=== PATIENT | male | born 1985 | race Caucasian/White ===

== ENCOUNTER 2019-01-24 11:58 | Inpatient (IN) ==
--- NOTE | 2019-01-24 12:38 | Anesthesia Evaluation PreOp ---
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: Other (anxiety, ADHD, bipolar, auditory and visual hallucinations, prior suicide attempt, previous psychiatric hospitalization) Other Medical History: Denies Any Significant HX, Hepatic (hepatitis) Anesthesia History: No Prior Anesthetic Complications Alcohol Use: none Drug use: IV Drug Use (Hx IV drug use) Medications and Allergies No Known Home Drugs 01/24/19 [History] Allergy/AdvReac Type Severity Reaction Status Date / Time aspirin Allergy Difficulty Verified 10/10/18 15:29 Breathing - Meds/Allergy Pre-op Review Medications Reviewed: Yes Allergies Reviewed: Yes Beta Blockers on Current Med List: No Anesthesia Exam O2 Sat Height 1.75 m Height 1.75 m Weight 74.48 kg Weight 74.48 kg O2 Sat by Pulse Oximetry 98 O2 Sat by Pulse Oximetry 98 Vital Signs Temp Pulse Resp BP Pulse Ox 98.5 F 86 18 131/95 98 01/24/19 12:35 01/24/19 12:35 01/24/19 12:35 01/24/19 12:35 01/24/19 12:35 NPO (# of Hours): > 8 hrs Pain Scale: 0 Pain Scale Used: Numeric (1 - 10) - HEENT Pupil (Motor): Pupils equal, EOMI Mallampati: II Teeth: Normal Oral Opening: Greater than 3 - 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
[2019-01-24] MEDS ORDERED: Albuterol 2.5 MG/3 ML NEBULIZER IH ONE ×2 (12:53→13:10)
[2019-01-24] MEDS ORDERED: CeFAZolin Syr 2,000MG/20 ML 2,000 MG/20 ML SYRINGE IVPB ONE (12:53)
[2019-01-24] MEDS ORDERED: Ringers Solution, Lactated 1,000 ML IVC SCH (13:00)
[2019-01-24] MEDS ORDERED: Lidocaine -MPF 2% 2 ML VIAL ONE (13:08)
[2019-01-24] MEDS ORDERED: *HR* FentaNYL (PF) 100 MCG/2 ML VIAL ONE (13:08)
[2019-01-24] MEDS ORDERED: *HR* Midazolam HCl 2 MG/2 ML VIAL ONE (13:08)
[2019-01-24] MEDS ORDERED: Ondansetron 4 MG/2 ML VIAL ONE (13:08)
[2019-01-24] MEDS ORDERED: Dexamethasone 4 MG/ML VIAL ONE (13:08)
[2019-01-24] MEDS ORDERED: *HR* Propofol 200 MG/20 ML VIAL IVP ONE (13:08)
[2019-01-24] MEDS ORDERED: *HR* Labetalol 20 MG/4 ML SYRINGE IVP PRN (13:10)
[2019-01-24] MEDS ORDERED: *HR* Promethazine 25 MG/ML VIAL IVP PRN (13:10)
[2019-01-24] MEDS ORDERED: *HR* OxyCODONE Immed Rel 5 MG TABLET PO PRN ×2 (13:10→16:34)
[2019-01-24] MEDS ORDERED: *HR* HYDROmorphone (PF) 1 MG/ML SYRINGE IVP PRN (13:10)
[2019-01-24] MEDS ORDERED: Ondansetron 4 MG/2 ML VIAL IVP ONE (13:10)
--- NOTE | 2019-01-24 14:04 | History & Physical Report ---
Date of Encounter: 01/24/19 Time of Encounter: 14:01 24 Hour HP Update - Instructions Instructions: If the History and Physical is less than 30 days old and was completed prior to A.M. admission and or procedure and has NOT been updated on calendar day of procedure please complete this update prior to performing procedure. - Update Patient reports changes in Medical Condition: No Changes in examination, assessment, or condition: No Changes in Medication: No Preop tests/diagnostics Reviewed: Yes Surgery Remains Indicated: Yes Consent for Planned Operative Procedure(s) Verified: Yes - Attending Attestation I did have a long discussion with the patient regarding the clinical scenario. He does admit to a history of IV drug use to he says he has not used in years, however on exam he does have fresh-appearing track harper on both forearms and antecubital fossa regions. Given my concern and risk to the patient of going home with the PICC in terms of overdose which could be deadly, my recommendation is direct admission to the hospitalist to facilitate placement. The patient is agreeable. I did communicate this plan with the hospitalist will take the patient on as a primary patient and I will see him in consultation.
[2019-01-24] MEDS ORDERED: Bupivacaine/EPI 1:200k 0.5%PF 10 ML VIAL ONE (14:06)
[2019-01-24] MEDS ORDERED: Vancomycin 1,000 MG VIAL ONE (14:44)
[2019-01-24] MEDS ORDERED: Ondansetron 4 MG/2 ML VIAL IVP PRN (16:34)
[2019-01-24] MEDS ORDERED: Acetaminophen 325 MG TABLET PO PRN (16:34)
[2019-01-24] MEDS ORDERED: Naloxone 0.4 MG/ML INJ IVP PRN (16:34)
[2019-01-24] MEDS ORDERED: Ipratropium/Albuterol Neb 3 ML IH PRN (16:39)
--- NOTE | 2019-01-24 16:47 | Orthopedic Operative Note ---
Date of procedure: 01/24/19 Procedure: OPERATIVE REPORT SURGEON: Camacho Roman MD PREOPERATIVE DIAGNOSIS: Right long finger infection with osteomyelitis and septic arthritis of the distal interphalangeal joint POSTOPERATIVE DIAGNOSIS: Same PROCEDURE: Incision, drainage, irrigation, debridement of the right long finger including debridement of the middle and distal phalanges and distal interphalangeal joint ANESTHESIA: Gen. anesthesia SPECIMENS: By biopsies taken for culture and specimen as well as swabs for culture PREOPERATIVE NOTE The surgical plan was reviewed with the patient. The risks, benefits, alternatives, and potential complications of this procedure were discussed with the patient including injury to veins, arteries, nerves, tendons, ligaments, and bone. Also discussed were the risks of infection, bleeding, pain, blood clots, the possible need for a blood transfusion, the possible need for further procedures, heart attack, stroke, and . Additional risks include persistent infection despite surgery and the need for amputation. All of this was explained in simple terms, and the patient verbalized understanding and wished to proceed. Consent was given to proceed with surgery. PROCEDURE: The patient was seen in the preoperative holding area where the identify and the consent were confirmed. The right long finger was marked. Final questions were answered. The patient was brought back to the operating room and placed supine on the operating room table. A huddle was performed with the patient and all vital surgical team members confirming patient identity, the correct procedure, and the correct operative site. Gen. anesthesia was administered. The operative extremity was prepped and draped in the usual sterile fashion. A surgical time out was performed immediately preceding the incision with all personnel in the operating room to confirm patient identity, the correct operative site and extremity, correct radiographic studies, availability of appropriate surgical equipment, and agreement on the planned procedure. The tourniquet was inflated without exsanguination. An H-shaped incision was made dorsally over the distal interphalangeal joint and full-thickness flaps were elevated. The extensor mechanism was identified and was noted to be attenuated. This was elevated. The distal interphalangeal joint was opened along its radial margin. The bone of the distal phalanx and the middle phalanx was very soft and easily debrided with a rongeur and curette. This bone was sent for both culture and specimen. The distal interphalangeal joint was swabbed for culture. There is no grossly purulent material during any portion of the dissection. The wound was copiously irrigated with 3 L of saline. The wound was very loosely closed with interrupted nylon stitches to allow for drainage. A soft, sterile dressing was applied followed by an AlumaFoam splint. The instrument, sponge, and needle counts were correct after wound closure. POST OPERATIVE PLAN: Due to the patient's prior history of IV drug use will at this point manage the patient on an inpatient basis so that we can discuss disposition with addiction social worker and the hospitalist. Was there an assistant boys track coach present: No Estimated blood loss (cc): 1
[2019-01-24 16:48] LABS: Basophils % 0.3 %; Eosinophils # 0.2 K/mcL (0.0-0.6); Eosinophils % 2.9 %; Hematocrit 40.3 % (37.5-50.1); Hemoglobin 13.5 g/dL (12.9-16.9); Immature Granulocytes % 0.4 % (0-4); Lymphocytes # 1.8 K/mcL (0.6-4.6); Lymphocytes % 25.8 %; Mean Corpuscular HGB Conc 33.5 g/dL (31.6-35.5); Mean Corpuscular Hemoglobin 30.7 pg (28.0-33.3); Mean Corpuscular Volume 91.6 fL (83.0-100.0); Mean Platelet Volume 9.5 fL (9.4-12.4); Monocytes # 0.3 K/mcL (0.0-1.3); Neutrophils # 4.7 K/mcL (1.6-8.9); Platelet Count 195 K/mcL (140-400); Red Cell Distribution Width 13.2 % (11.5-14.5); Segmented Neutrophils % 66.6 %
--- NOTE | 2019-01-24 16:50 | Orthopedics Progress Note ---
Date of Encounter: 01/24/19 Time of Encounter: 16:47 Subjective Interval history: S: The patient is seen on the floor and is comfortable. The digital block is still in effect. O: Afebrile, VSS Postoperative dressings in place. The fingertip is pink with excellent capillary refill A: Post I&D of the right long finger including the DIP joint and middle and distal phalanges. P: At this point the patient is admitted to the hospitalist. Continue vancomycin over the weekend until cultures delineate Daily dressing changes Elevation of the right upper extremity Objective Vital signs: Vital Signs Temp Pulse Resp BP Pulse Ox 01/24/19 16:45 98.3 F 73 16 118/75 100 01/24/19 16:06 97.5 F L 66 18 122/79 100 01/24/19 15:21 62 18 96/59 100 01/24/19 15:11 61 18 91/59 99 01/24/19 15:01 98.0 F 64 20 93/52 98 01/24/19 12:35 98.5 F 86 18 131/95 98 Intake and Output 01/24/19 01/24/19 01/24/19 07:59 15:59 23:59 Output Total 2 / 2 Balance -2 / -2 Output: Estimated Blood Loss 2 / 2 Other: Weight 74.48 kg Patient Weight 01/24/19 23:59 Weight 74.48 kg Consult Discharge Plan - Plan Referrals: NONE,PCP [Primary Care Provider] -
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
[2019-01-24 17:11] LABS: Alanine Aminotransferase 165 Units/L (7-52); Albumin 4.2 g/dL (3.5-5.7); Albumin/Globulin Ratio 1.6 (1.1-2.2); Alkaline Phosphatase 67 Units/L (34-104); Aspartate Amino Transferase 111 Units/L (13-39); Bilirubin,Total 0.6 mg/dL (0.3-1.0); Blood Urea Nitrogen 13 mg/dL (6-20); Calcium 9.2 mg/dL (8.6-10.3); Carbon Dioxide 28 mEq/L (23-29); Chloride 104 mEq/L (98-107); Globulin 2.6 g/dL (2.4-3.5); Glucose 97 mg/dL (70-105); Osmolality,Calculated 288 (280-300); Sodium 139 mEq/L (136-145); Total Protein 6.8 g/dL (6.4-8.9)
[2019-01-24 17:12] LABS: Magnesium 1.8 mg/dL (1.6-2.6); Phosphorous 3.7 mg/dL (2.7-4.5)
[2019-01-24] MEDS: *HR* Heparin 5,000 UNIT/ML VIAL SQ SCH (17:33)
[2019-01-24 18:29] LABS: BUN/Creatinine Ratio 19 (6-26); eGFR For Non-African Americans > 60 (> 60)
[2019-01-24 19:57] LABS: Amphetamine Screen,Urine Negative ng/mL (Cutoff=1000); Barbiturate Screen,Urine Negative ng/mL (Cutoff=200); Benzodiazepines Screen,Urine Positive ng/mL (Cutoff=200); Cannabinoid Screen,Urine Positive ng/mL (Cutoff = 50); Cocaine Screen,Urine Positive ng/mL (Cutoff= 300); Opiate Screen,Urine Negative ng/mL (Cutoff=300); Phencyclidine Screen,Urine Negative ng/mL (Cutoff=25)
[2019-01-24] MEDS: *HR* HYDROcodone/Acet 5/325 mg TABLET PO PRN (21:40)
[2019-01-24] MEDS ORDERED: Melatonin 3 MG TABLET PO PRN (22:58)
[2019-01-25] MEDS: *HR* HYDROcodone/Acet 5/325 mg TABLET PO PRN (05:13)
[2019-01-25] MEDS: *HR* Heparin 5,000 UNIT/ML VIAL SQ SCH (05:15)
[2019-01-25 06:07] LABS: Basophils % 0.2 %; Eosinophils % 0.2 %; Hematocrit 37.9 % (37.5-50.1); Hemoglobin 12.7 g/dL (12.9-16.9); Immature Granulocytes % 0.3 % (0-4); Lymphocytes # 1.9 K/mcL (0.6-4.6); Lymphocytes % 22.5 %; Mean Corpuscular HGB Conc 33.5 g/dL (31.6-35.5); Mean Corpuscular Hemoglobin 30.4 pg (28.0-33.3); Mean Corpuscular Volume 90.7 fL (83.0-100.0); Mean Platelet Volume 9.7 fL (9.4-12.4); Monocytes # 0.6 K/mcL (0.0-1.3); Monocytes % 7.2 %; Platelet Count 209 K/mcL (140-400); Red Blood Count 4.18 M/mcL (4.19-5.50); Red Cell Distribution Width 12.7 % (11.5-14.5); Segmented Neutrophils % 69.6 %
[2019-01-25 06:24] LABS: BUN/Creatinine Ratio 17 (6-26); Blood Urea Nitrogen 12 mg/dL (6-20); Calcium 9.4 mg/dL (8.6-10.3); Carbon Dioxide 29 mEq/L (23-29); Chloride 103 mEq/L (98-107); Glucose 136 mg/dL (70-105); Magnesium 1.8 mg/dL (1.6-2.6); Osmolality,Calculated 288 (280-300); Phosphorous 3.2 mg/dL (2.7-4.5); Sodium 138 mEq/L (136-145); eGFR For Non-African Americans > 60 (> 60)
--- NOTE | 2019-01-25 06:29 | Orthopedics Progress Note ---
Date of Encounter: 01/25/19 Time of Encounter: 06:28 Subjective Interval history: Patient seen this morning, dressing clean dry and intact, patient admitted for IV antibiotics and placement. Patient have will dressing change by nursing staff Objective Vital signs: Vital Signs Temp Pulse Resp BP Pulse Ox 01/25/19 05:04 98.6 F 69 18 113/72 98 01/24/19 23:29 98.8 F 83 18 131/85 97 01/24/19 18:44 97.9 F 88 17 126/82 100 01/24/19 17:15 98.2 F 73 16 128/80 100 01/24/19 16:45 98.3 F 73 16 118/75 100 01/24/19 16:06 97.5 F L 66 18 122/79 100 01/24/19 15:21 62 18 96/59 100 01/24/19 15:11 61 18 91/59 99 01/24/19 15:01 98.0 F 64 20 93/52 98 01/24/19 12:35 98.5 F 86 18 131/95 98 Intake and Output 01/24/19 01/24/19 01/25/19 15:59 23:59 07:59 Intake Total 800 / 800 240 / 240 Output Total 2 / 2 700 / 700 Balance -2 / -2 800 / 800 -460 / -460 Intake: Oral 800 / 800 240 / 240 Output: Urine 700 / 700 Estimated Blood Loss 2 / 2 Other: # Voids 1 Weight 74.48 kg 74.3 kg Patient Weight 01/25/19 23:59 Weight 74.3 kg - Labs CBC & BMP: 01/25/19 05:55 01/25/19 05:55 Labs: Abnormal lab results RBC 4.18 M/mcL (4.19-5.50) L 01/25/19 05:55 Hgb 12.7 g/dL (12.9-16.9) L 01/25/19 05:55 ESR 12 mm/hr (0-10) H 01/24/19 16:28 Creatinine 0.69 mg/dL (0.70-1.30) L 01/25/19 05:55 Glucose 136 mg/dL (70-105) H 01/25/19 05:55 AST 111 Units/L (13-39) H 01/24/19 16:28 ALT 165 Units/L (7-52) H 01/24/19 16:28 U Benzodiazepines Scrn Positive ng/mL (Aioglv=373) H 01/24/19 19:30 Urine Cocaine Screen Positive ng/mL (Cutoff= 300) H 01/24/19 19:30 U Marijuana (THC) Screen Positive ng/mL (Cutoff = 50) H 01/24/19 19:30 Consult Discharge Plan - Plan Referrals: NONE,PCP [Primary Care Provider] -
[2019-01-25 06:52] VITALS: BP 119/79
--- NOTE | 2019-01-25 09:48 | Internal Med Progress Note ---
Hospitalist Progress Note - Encounter Date of Encounter: 01/25/19 Time of Encounter: 09:20 - Subjective Interval History: Pt seen and examined with RN present at bedside. Patient agitated and angry that he has to be hospitalized for IV antibiotics. He is threatening that he is going to pull out his PICC line and leave the hospital. Patient continues to deny any drug use prior to his hospitalization even though he is informed of his positive drug screen with cocaine, benzos, and marijuana. He acknowledges marijuana use but continues to deny any other drug use. Denies any pain at this time. Patient educated about the need to stay in the hospital for IV antibiotics and to remain compliant with his medications. No overnight events reported 10 point review of systems is negative except as listed above - Exam Vitals: Temp Pulse Resp BP Pulse Ox 97.9 F 73 16 119/79 98 01/25/19 06:51 01/25/19 06:51 01/25/19 06:51 01/25/19 06:51 01/25/19 06:51 Exam: General: No acute distress, AAO x 3 HEENT: EOMI, NC/AT, no scleral icterus Respiratory: Clear to auscultate bilaterally, no wheezing, no rales Cardiovascular: Regular, Rate, Rhythm, No murmurs GI: Soft, Non tender, non distended, normal bowel sounds Ext: No edema, no tenderness, positive pulses, right middle finger dressing intact, track harper on bilateral upper extremities Neuro: AAO x 3, no focal deficits - Summary of Assessment and Plan Summary of Assessment and Plan: Mr. Reyes is a 33 year old male with PMH of IVDA, polysubstance abuse, depression, extensive psych history who is admitted for IV abx for right middle finger osteomyelitis. 1. Osteomyelitis/Septic arthritis of right middle finger Continue Vancomycin and Zosyn IV s/p I&D on 01/24/19 blood cultures preliminary report: No growth thus far pain control orthopedic evaluation appreciated ID evaluation requested Follow-up 2D echo given hx of IVDA ESR and CRP noted Continue wound care as per orthopedic surgery 2. Hx of drug abuse UDS noted Hydroxyzine 25 mg by mouth every 12 when necessary for anxiety closely monitor for any withdrawal symptoms 3. DVT ppx Heparin SQ 4. Elevated transaminases We will obtain hepatitis profile Care plan discussed with patient/RN - Time Spent with Patient Total time spent is greater than 50% in coordination of care (as documented) at patient's floor/unit and/or counseling patient: Internal Medicine: Result - Labs CBC & Chem 7: 01/25/19 05:55 01/25/19 05:55 Labs: Short CBC 01/24/19 01/25/19 Range/Units 16:28 05:55 WBC 7.0 8.6 (4.3-11.1) K/mcL Hgb 13.5 12.7 L (12.9-16.9) g/dL Hct 40.3 37.9 (37.5-50.1) % Plt Count 195 209 (140-400) K/mcL Neutrophils # 4.7 6.0 (1.6-8.9) K/mcL BMP 01/24/19 01/25/19 16:28 05:55 Sodium 139 138 Potassium 4.0 4.0 Chloride 104 103 Carbon Dioxide 28 29 BUN 13 12 Creatinine 0.67 L 0.69 L Glucose 97 136 H Calcium 9.2 9.4 Liver Function 01/24/19 Range/Units 16:28 Total Bilirubin 0.6 (0.3-1.0) mg/dL AST 111 H (13-39) Units/L ALT 165 H (7-52) Units/L Alkaline Phosphatase 67 (34-104) Units/L Albumin 4.2 (3.5-5.7) g/dL - Impressions Impressions Finger X-Ray 01/24/19 14:26 IMPRESSION: Intraprocedural fluoroscopic spot images as above. See separate procedure report for more information. D/ / Osbaldo Davenport MD / Osbaldo Davenport MD Interpreting Provider: Osbaldo Davenport MD Fluoroscopy 01/24/19 14:26 IMPRESSION: Intraprocedural fluoroscopic spot images as above. See separate procedure report for more information. D/ / Osbaldo Davenport MD / Osbaldo Davenport MD Interpreting Provider: Osbaldo Davenport MD Consult Discharge Plan - Plan Referrals: NONE,PCP [Primary Care Provider] -
[2019-01-25] MEDS ORDERED: hydrOXYzine pamoate 25 MG CAPSULE PO PRN (10:17)
[2019-01-25] MEDS ORDERED: Piperacillin/Tazobactam 3.375 GM in 0.9 % Sodium Chloride Mini Bag 100 ML IVPB SCH (16:38)
== END 2019-01-25 11:30 | disposition left against medical advice (07) | DRG 320 ==
LOC: SAMDAYPAV 11:58 → 3NENU 16:01
PROVIDERS: ADMIT Internal Medicine; ATTEND Internal Medicine

== ENCOUNTER 2019-02-16 16:42 | Inpatient (IN) ==
--- NOTE | 2019-02-16 17:24 | Emergency Department Note ---
Disposition Clinical Impression: Hypokalemia, Hypocalcemia Septic arthritis Qualifiers: Septic arthritis location: unspecified location Septic arthritis organism: due to unspecified organism Qualified Code(s): M00.9 - Pyogenic arthritis, unspe cified Disposition: Admitted As Inpatient Condition: Good Time of Disposition: 18:07 Extremity Problem HPI - General Chief complaint: ED Extremity Problem,Nontraumatic Stated complaint: R Hand Infected Time Seen by Provider: 02/16/19 17:19 Source: patient Mode of arrival: ambulatory Limitations: no limitations Nursing Notes Reviewed: Yes Vital Signs Reviewed: Yes - History of Present Illness HPI Narrative: Patient is a 33-year-old male with past medical history of previous drug abuse. He also has a previous diagnosis of septic arthritis of the right third DIP joint. Presents today due to continued pain in the right third DIP joint. Patient states that around December 30, he accidentally jammed a pocket knife into the DIP joint of the right third digit on the medial aspect. He states that he went to urgent care and was prescribed kanamycin. He is on this antibiotic for a short time and then states that his joint began to get inflamed and red and painful. He eventually went to [facility] and was then referred to [facility] orthopedics. He states that he saw the orthopedic physician who stated that he did not work on hands. He was eventually referred to [facility]. He states that he saw Dr. Roman. During that visit, it was recommended that he have a PICC line placed for IV vancomycin. However, patient had discussed previous IV drug abuse and he stated that the physician was not comfortable with sending him home with a PICC line. He was recommended that he be admitted for IV antibiotic. However, patient refused. He is now returning with continued pain and states that he has changed his mind and will stay for IV antibiotics as he fears losing that digit. He now complains of pain and swelling of the entire digit and worsening swelling of the right third DIP joint. Denies any nausea, vomiting, fevers, numbness, tingling, weakness, chest pain, shortness of breath, abdominal pain. Pain Scale: 10 - Related Data Home Medications Medication Instructions Recorded Confirmed No Known Home Drugs 01/24/19 01/24/19 Allergies Allergy/AdvReac Type Severity Reaction Status Date / Time aspirin Allergy Difficulty Verified 10/10/18 15:29 Breathing All systems ED: reviewed and negative except as stated. Constitutional: Denies: fever Cardiovascular: Denies: chest pain Respiratory: Denies: dyspnea Gastrointestinal: Denies: abdominal pain, nausea, vomiting, diarrhea, constipation Genitourinary: Denies: urgency, dysuria Musculoskeletal: Reports: arthralgia Neurological: Denies: weakness, numbness, paresthesias Past Medical History - Past Medical History Attestation: Yes The following information was validated with the patient. Source: patient Medical history: Reports: no medical history Surgical history: Reports: orthopedic, other Psychiatric history: Reports: anxiety, ADHD, bipolar, prior suicide attempt, previous psychiatric hospitalization - Social History Smoking Status: Former smoker Smokeless Tobacco Status: Yes Alcohol use: Reports: occasionally Drug use: Reports: marijuana Physical Exam - General Limitations: no limitations General appearance: alert, in no apparent distress - Head Head exam: atraumatic, normocephalic, normal inspection - Eye Eye exam: Present: normal appearance, PERRL, EOMI - ENT ENT exam: normal exam, normal oropharynx, mucous membranes moist - Neck Neck exam: Present: normal inspection, full ROM, trachea midline - Chest Chest inspection: Present: normal inspection, symmetric chest wall rise - Respiratory Respiratory exam: Present: normal lung sounds bilaterally - Cardiovascular Cardiovascular exam: Present: normal rhythm, tachycardia, normal heart sounds - Expanded Upper Extremity Exam Hand exam: Present: other (right third digit DIP joint swelling and held in slight flexion. Unable to extend at DIP joint. Fusiform swelling of digit. Otherwise neurovascularly intact right hand and digits. ) Neurosensory exam: Normal: radial nerve, ulnar nerve, median nerve Vascular exam: Normal: capillary refill - Neurological Exam Neurological exam: Present: alert, oriented X3. Absent: motor sensory deficit - Psychiatric Psychiatric exam: Present: normal affect, normal mood - Skin Skin exam: Present: warm, dry, intact, normal color Course Course Narrative: Patient was tachycardic on presentation. Otherwise, the rest of vitals within normal limits. There is swelling and pain of the right third DIP joint. It is held in slight flexion. There is also additional swelling of the entire right third digit. Mild erythema overlying that digit. He has some tenderness along the dorsal and ventral aspect of the entire digit. Otherwise, neurovascularly intact hand and digits on the right. There is concern for septic arthritis as patient states that he has had previous diagnoses and was even going to be started on vancomycin. We will go ahead and obtain basic labs, ESR, CRP, lactate, blood cultures. We will go ahead and give the patient 30 mL per kilo bolus and start vancomycin and zosyn empirically as patient will probably meet sepsis criteria if his white blood cell count is elevated as well. 19:50 no elevation white blood cell count. ESR and CRP are not elevated. X- ray shows continued concern for septic arthritis and osteomyelitis. Antibiotics have already been started. He does have hypokalemia and hypocalcemia. No EKG changes. We will give the patient 40 mEq of potassium by mouth and then 40 in IV form. We will also give 2 g of calcium gluconate. Patient has been accepted by hospitalist Dr. Handy. Consult to orthopedics has been placed. Currently waiting on orthopedics to call back. [address] Springer, with diffuse on-call. We discussed the case. He stated that since Dr. Roman regarding familiar with the patient, he would like me to go ahead and place a drug consult to him. He did not feel that anything was emergent in terms of an emergent consult. No further recs at this time. The consult has not placed. Hand X-Ray 02/16/19 17:35 IMPRESSION: Persistent soft tissue thickening involving the distal 3rd digit with cortical destructive changes involving the 3rd DIP joint. Findings are again concerning for septic arthritis and osteomyelitis. D/ / Geovanny Cabral / Geovanny Cabral Interpreting Provider: Geovanny Cabral Vital Signs Temperature 98.3 F 02/16/19 16:45 Pulse Rate 106 02/16/19 16:45 Respiratory Rate 20 02/16/19 16:45 Blood Pressure 148/80 02/16/19 16:45 O2 Sat by Pulse Oximetry 97 02/16/19 16:45 Temperature 98.3 F 02/16/19 16:45 Pulse Rate 66 02/16/19 19:12 Respiratory Rate 20 02/16/19 19:12 Blood Pressure 124/84 02/16/19 19:12 O2 Sat by Pulse Oximetry 98 02/16/19 19:12 Oxygen Delivery Oxygen Delivery Room Air Extremity Problem, Nontraumati - MDM Narrative Medical decision making narrative: Patient was tachycardic on presentation. Otherwise, the rest of vitals within normal limits. There is swelling and pain of the right third DIP joint. It is held in slight flexion. There is also additional swelling of the entire right third digit. Mild erythema overlying that digit. He has some tenderness along the dorsal and ventral aspect of the entire digit. Otherwise, neurovascularly intact hand and digits on the right. There is concern for septic arthritis as patient states that he has had previous diagnoses and was even going to be started on vancomycin. We will go ahead and obtain basic labs, ESR, CRP, [place] t[place], blood cultures. We will go ahead and give the patient 30 mL per kilo bolus and start vancomycin and zosyn empirically as patient will probably meet sepsis criteria if his white blood cell count is elevated as well. 19:50 no elevation white blood cell count. ESR and CRP are not elevated. X- ray shows continued concern for septic arthritis and osteomyelitis. Antibiotics have already been started. He does have hypokalemia and hypocalcemia. No EKG changes. We will give the patient 40 mEq of potassium by mouth and then 40 in IV form. We will also give 2 g of calcium gluconate. Patient has been accepted by hospitalist Dr. Handy. Consult to orthopedics has been placed. Maria E smalls waiting on orthopedics to call back. [address] Springer, with diffuse on-call. We discussed the case. He stated that since Dr. Roman regarding familiar with the patient, he would lik e me to go ahead and place a drug consult to him. He did not feel that anything was emergent in terms of an emergent consult. No further recs at this time. The consult has not placed. - Medical Records Medical records reviewed: Yes I reviewed the patient's medical records. - Lab Data Lab results reviewed: Yes I reviewed the patient's lab results. Result diagrams: 02/16/19 17:24 02/16/19 17:24 Lab Results 02/16/19 02/16/19 02/16/19 Range/Units 17:24 17:24 17:24 WBC 6.5 (4.3-11.1) K/mcL RBC 4.09 L (4.19-5.50) M/mcL Hgb 12.6 L (12.9-16.9) g/dL Hct 36.7 L (37.5-50.1) % MCV 89.7 (83.0-100.0) fL MCH 30.8 (28.0-33.3) pg MCHC 34.3 (31.6-35.5) g/dL RDW 12.7 (11.5-14.5) % Plt Count 256 (140-400) K/mcL MPV 9.8 (9.4-12.4) fL Immature Gran % 0.2 (0-4) % Seg Neutrophils % 44.8 % Lymphocytes % 42.3 % Monocytes % 8.3 % Eosinophils % 3.8 % Basophils % 0.6 % Neutrophils # 2.9 (1.6-8.9) K/mcL Lymphocytes # 2.8 (0.6-4.6) K/mcL Monocytes # 0.5 (0.0-1.3) K/mcL Eosinophils # 0.3 (0.0-0.6) K/mcL Basophils # 0.0 (0.0-0.2) K/mcL ESR (0-10) mm/hr PT 11.6 (9.4-12.1) Seconds INR 1.0 APTT 32.0 (26.0-36.0) Seconds Sodium 145 (136-145) mEq/L Potassium 2.4 L* (3.5-5.1) mEq/L Chloride 118 H (98-107) mEq/L Carbon Dioxide 18 L (23-29) mEq/L BUN 5 L (6-20) mg/dL Creatinine 0.42 L (0.70-1.30) mg/dL Est GFR ( Amer) > 60 (> 60) Est GFR (Non-Af Amer) > 60 (> 60) BUN/Creatinine Ratio 12 (6-26) Glucose 67 L (70-105) mg/dL Calculated Osmolality 296 (280-300) Lactic Acid (0.5-2.2) mmol/L Calcium 5.8 L* (8.6-10.3) mg/dL Phosphorus 1.4 L (2.7-4.5) mg/dL Magnesium 1.0 L (1.6-2.6) mg/dL Total Bilirubin 0.3 (0.3-1.0) mg/dL Direct Bilirubin 0.1 (0.0-0.2) mg/dL Indirect Bilirubin 0.2 (0.0-1.2) mg/dL AST 25 (13-39) Units/L ALT 38 (7-52) Units/L Alkaline Phosphatase 38 (34-104) Units/L C-Reactive Protein (Less than 10) mg/L Serum Total Protein 4.1 L (6.4-8.9) g/dL Albumin 2.6 L (3.5-5.7) g/dL Globulin 1.5 L (2.4-3.5) g/dL Albumin/Globulin Ratio 1.7 (1.1-2.2) 02/16/19 02/16/19 02/16/19 Range/Units 17:35 17:35 17:50 WBC (4.3-11.1) K/mcL RBC (4.19-5.50) M/mcL Hgb (12.9-16.9) g/dL Hct (37.5-50.1) % MCV (83.0-100.0) fL MCH (28.0-33.3) pg MCHC (31.6-35.5) g/dL RDW (11.5-14.5) % Plt Count (140-400) K/mcL MPV (9.4-12.4) fL Immature Gran % (0-4) % Seg Neutrophils % % Lymphocytes % % Monocytes % % Eosinophils % % Basophils % % Neutrophils # (1.6-8.9) K/mcL Lymphocytes # (0.6-4.6) K/mcL Monocytes # (0.0-1.3) K/mcL Eosinophils # (0.0-0.6) K/mcL Basophils # (0.0-0.2) K/mcL ESR 4 (0-10) mm/hr PT (9.4-12.1) Seconds INR APTT (26.0-36.0) Seconds Sodium (136-145) mEq/L Potassium (3.5-5.1) mEq/L Chloride (98-107) mEq/L Carbon Dioxide (23-29) mEq/L BUN (6-20) mg/dL Creatinine (0.70-1.30) mg/dL Est GFR ( Amer) (> 60) Est GFR (Non-Af Amer) (> 60) BUN/Creatinine Ratio (6-26) Glucose (70-105) mg/dL Calculated Osmolality (280-300) Lactic Acid 1.9 (0.5-2.2) mmol/L Calcium (8.6-10.3) mg/dL Phosphorus (2.7-4.5) mg/dL Magnesium (1.6-2.6) mg/dL Total Bilirubin (0.3-1.0) mg/dL Direct Bilirubin (0.0-0.2) mg/dL Indirect Bilirubin (0.0-1.2) mg/dL AST (13-39) Units/L ALT (7-52) Units/L Alkaline Phosphatase (34-104) Units/L C-Reactive Protein < 5 (Less than 10) mg/L Serum Total Protein (6.4-8.9) g/dL Albumin (3.5-5.7) g/dL Globulin (2.4-3.5) g/dL Albumin/Globulin Ratio (1.1-2.2) - EKG Data EKG attestation: Yes I reviewed and interpreted this EKG. EKG results narrative: 02/16/2019 at 17:57. Sinus rhythm. Rate 68. OH 131. QRS 131. QTC 430. Normal axis. No acute ST elevation or depression. S.B.A.R. - S.B.A.R. Situation: Demographics, MOA Background: Presenting Complaint, Relevant PMH, Meds, & Allergies Assessment: Vital Signs, Course and respsone to treatment, Exam Concerns, Patient/Family Expectation, Pertinant Lab Results Recommendation: Barrier(s) to disposition, Recommendation based on pending studies, treatments, or consults S.B.A.R. Report Given to: Dr. Handy Attestation Statement - Attestation Attestation: I examined this patient and my medical decision-making was reviewed with the Resident Physician. I agree with the documented findings, disposition and treatment plan as described except to the extent set forth below. [id number] time provided Patient arrives complaining of right third digit pain at the DIP joint. He states this initially started with a pocket knife injury and he was treated at [facility]. It was recommended then that the patient be admitted and also receive long-term PICC line antibiotics but he states he declined. He has completed the course of outpatient antibiotics. He is concerned because the digit is swollen and causing pain to his entire right hand. The patient does not appear systemically ill. He does have localized swelling to the right third DIP joint
[2019-02-16] MEDS ORDERED: *HR* FentaNYL (PF) 100 MCG/2 ML VIAL IVP ONE (17:36)
[2019-02-16 18:07] LABS: Basophils % 0.6 %; Eosinophils # 0.3 K/mcL (0.0-0.6); Eosinophils % 3.8 %; Hematocrit 36.7 % (37.5-50.1); Hemoglobin 12.6 g/dL (12.9-16.9); Immature Granulocytes % 0.2 % (0-4); Lymphocytes # 2.8 K/mcL (0.6-4.6); Lymphocytes % 42.3 %; Mean Corpuscular HGB Conc 34.3 g/dL (31.6-35.5); Mean Corpuscular Hemoglobin 30.8 pg (28.0-33.3); Mean Corpuscular Volume 89.7 fL (83.0-100.0); Mean Platelet Volume 9.8 fL (9.4-12.4); Monocytes # 0.5 K/mcL (0.0-1.3); Monocytes % 8.3 %; Neutrophils # 2.9 K/mcL (1.6-8.9); Platelet Count 256 K/mcL (140-400); Red Blood Count 4.09 M/mcL (4.19-5.50); Red Cell Distribution Width 12.7 % (11.5-14.5); Segmented Neutrophils % 44.8 %
[2019-02-16] MEDS ORDERED: Piperacillin/Tazobactam 3.375 GM in 0.9 % Sodium Chloride Mini Bag 100 ML IVPB ONE (18:12)
[2019-02-16 18:15] LABS: Prothrombin Time 11.6 Seconds (9.4-12.1)
[2019-02-16 18:30] LABS: Alanine Aminotransferase 38 Units/L (7-52); Albumin 2.6 g/dL (3.5-5.7); Albumin/Globulin Ratio 1.7 (1.1-2.2); Alkaline Phosphatase 38 Units/L (34-104); Aspartate Amino Transferase 25 Units/L (13-39); BUN/Creatinine Ratio 12 (6-26); Bilirubin,Direct 0.1 mg/dL (0.0-0.2); Bilirubin,Indirect 0.2 mg/dL (0.0-1.2); Bilirubin,Total 0.3 mg/dL (0.3-1.0); Blood Urea Nitrogen 5 mg/dL (6-20); Calcium 5.8 mg/dL (8.6-10.3); Carbon Dioxide 18 mEq/L (23-29); Chloride 118 mEq/L (98-107); Globulin 1.5 g/dL (2.4-3.5); Glucose 67 mg/dL (70-105); Osmolality,Calculated 296 (280-300); Phosphorous 1.4 mg/dL (2.7-4.5); Potassium 2.4 mEq/L (3.5-5.1); Sodium 145 mEq/L (136-145); Total Protein 4.1 g/dL (6.4-8.9); eGFR For Non-African Americans > 60 (> 60)
[2019-02-16] MEDS ORDERED: Calcium Gluconate 2,000 MG in 0.9 % Sodium Chloride 100 ML IVPB ONE (19:04)
[2019-02-16] MEDS ORDERED: Potassium Chloride Elixir 20 MEQ/15 ML UDC PO ONE (19:04)
[2019-02-16] MEDS ORDERED: Ondansetron 4 MG/2 ML VIAL IVP ONE (19:15)
[2019-02-16] MEDS ORDERED: Potassium Chloride 40 MEQ, Lidocaine 1% 2 ML in D5% in Water 500 ML IVPB ONE (19:46)
[2019-02-16] MEDS ORDERED: Naloxone 0.4 MG/ML INJ IVP PRN (22:57)
[2019-02-16] MEDS ORDERED: Ondansetron 4 MG/2 ML VIAL IVP PRN (22:57)
[2019-02-16 23:47] LABS: VBG Ionized Calcium 1.21 mmol/L (1.15-1.35)
[2019-02-17] LABS: Calcium 9.3 mg/dL (8.6-10.3); Potassium 3.6 mEq/L (3.5-5.1)
[2019-02-17] MEDS: 0.9 % Sodium Chloride w KCl 20 MEQ/1,000 ML MLS IVC SCH ×2 (00:01→10:15)
[2019-02-17] MEDS: *HR* OxyCODONE Immed Rel 5 MG TABLET PO PRN ×4 (00:01→21:16)
--- NOTE | 2019-02-17 00:39 | Internal Med History&Physical ---
Date of Encounter: 02/16/19 Time of Encounter: 22:30 Internal Medicine - H&P: HPI Chief complaint: finger abscess/pain Admitted From: Emergency Dept Plans for Post Hospital Care: Home History of present illness: Mr. Reyes is a 33 year old male who presents to the ER tonight with complaints of worsening pain, swelling, and discomfort from his right middle finger. He was hospitalized a couple weeks ago, but he left AMA at that point. He was placed on oral antibiotics with lack of improvement and actual clinical w orsening of his finger abscess/osteomyelitis. He therefore came to ER today and was readmitted with consultation by Dr. Cotton. Upon my assessment of the patient, patient has significant pain and swelling of his distal tip of his right third finger. He has some swelling and tenderness in the DIP joint as well. He has intact neurovasculature of his right hand and finger. However, he has exquisite pain and tenderness in the area. Reportedly, patient has a history of polysubstance abuse, IV drug abuse, and history of hepatitis C. Reportedly, he has been clean for several years now. He reports that he has had no fevers, chills, or night sweats. His only complaint is pain, swelling, and limited range of motion of his right third finger. Past Med Surg Social Fam HX - Past Medical History Attestation: Yes The following information was validated with the patient. Source: patient, old records reviewed, obtained from family Medical history: no medical history Additional medical history: osteomyelitis, septic arthritis Psychiatric history: anxiety, ADHD, bipolar, prior suicide attempt, previous psychiatric hospitalization - Past Surgical History Surgical History: orthopedic, other Additional surgical history: Right wrist. Right middle finger surgery - Social History Smoking Status: Light tobacco smoker Smokeless Tobacco Status: Yes Alcohol use: occasionally Drug use: marijuana Current living situation: Home, With Family Activity Level: Independent ambulation Recent Out of Country Travel Within the Last 8 Weeks: No - Family History Mother Family Member Ethnicity: Non- Hx Family Endocrine Disorder: Yes Internal Medicine - H&P: Meds Citalopram [CeleXA] 20 mg PO HS 02/16/19 [History] Ziprasidone HCl [Geodon] 40 mg PO BIDWM 02/16/19 [History] Allergy/AdvReac Type Severity Reaction Status Date / Time aspirin Allergy Difficulty Verified 02/16/19 21:39 Breathing - Constitutional Constitutional: no chills, no fever(s), no night sweats - EENT Eyes: no blurry vision, no change in vision Ears: no ear pain, no tinnitus Nose, mouth and throat: no nasal congestion, no sore throat - Cardiovascular Cardiovascular ROS IM: no chest pain, no dyspnea - Respiratory Respiratory: no cough, no hemoptysis, no chest congestion - Gastrointestinal Gastrointestinal: no abdominal pain, no diarrhea, no vomiting - Genitourinary Genitourinary ROS male: no dysuria, no flank pain - Musculoskeletal Musculoskeletal ROS IM: arthralgias (right 3rd finger), no back pain - Integumentary Integumentary IM: no rash, no jaundice - Neurological Neurological ROS: no dizziness, no focal weakness, no frequent falls, no headache(s) - Psychiatric Psychiatric: anxiety, no depression - Endocrine Endocrine IM: no polydipsia, no polyuria - Allergic/Immunologic Allergic/Immunologic: no GI upset with certain foods - Constitutional Vitals: Temp Pulse Resp BP Pulse Ox 98.3 F 67 16 118/77 98 02/16/19 22:37 02/16/19 22:37 02/16/19 22:37 02/16/19 22:37 02/16/19 22:37 General appearance: Present: cooperative, mild distress, A&O X 3, pleasant, answers questions appropriately Exam: see below - Head Head exam: Present: atraumatic, normal inspection - Eye Eye exam: Present: EOMI, PERRL. Absent: scleral icterus Pupils: Present: normal accommodation - ENT ENT exam: Present: mucous membranes dry, normal exam, normal oropharynx - Neck Neck exam general surgery: Present: full ROM, supple, trachea midline. Absent: tenderness, nuchal rigidity, thyromegaly - Respiratory Respiratory exam: Present: CTAB. Absent: chest wall tenderness, rales, rhonchi, tachypnea - Cardiovascular Cardiovascular exam: Present: RRR, +S1, +S2. Absent: diastolic murmur, systolic murmur - GI/Abdominal GI/Abdominal exam: Present: normal bowel sounds, soft. Absent: guarding, hepatomegaly, mass, rebound, splenomegaly, tenderness - Extremities Exam Extremities exam: Present: normal capillary refill, tenderness (right 3rd finger -- swollen, very tender, limited ROM), warm, radial pulses palpable and symmetrical. Absent: calf tenderness, pedal edema Additional comments: intact neurovasculature right hand/finger - Back Exam Back exam: Present: normal inspection. Absent: CVA tenderness (L), CVA tenderness (R) - Neurological Exam Neurological exam: Present: alert, CN II-XII intact, oriented X3, no focal deficits - Psychiatric Psychiatric exam: Present: anxious - Skin Skin exam: Present: dry, intact, warm Internal Med - H&P Results - Labs CBC & Chem 7: 02/16/19 17:24 02/16/19 23:28 Labs: Short CBC 02/16/19 Range/Units 17:24 WBC 6.5 (4.3-11.1) K/mcL Hgb 12.6 L (12.9-16.9) g/dL Hct 36.7 L (37.5-50.1) % Plt Count 256 (140-400) K/mcL Neutrophils # 2.9 (1.6-8.9) K/mcL BMP 02/16/19 02/16/19 17:24 23:28 Sodium 145 Potassium 2.4 L* 3.6 D Chloride 118 H Carbon Dioxide 18 L BUN 5 L Creatinine 0.42 L Glucose 67 L Calcium 5.8 L* 9.3 Liver Function 02/16/19 Range/Units 17:24 Total Bilirubin 0.3 (0.3-1.0) mg/dL Direct Bilirubin 0.1 (0.0-0.2) mg/dL AST 25 (13-39) Units/L ALT 38 (7-52) Units/L Alkaline Phosphatase 38 (34-104) Units/L Albumin 2.6 L (3.5-5.7) g/dL - Impressions ITS Impressions Hand X-Ray 02/16/19 17:35 IMPRESSION: Persistent soft tissue thickening involving the distal 3rd digit with cortical destructive changes involving the 3rd DIP joint. Findings are again concerning for septic arthritis and osteomyelitis. D/ / Geovanny Cabral / Geovanny Cabral Interpreting Provider: Geovanny Cabral - Diagnostic Studies Other Images Status: image reviewed by me (Hand xray) - Assessment and Plan (1) Septic arthritis Current Visit: Yes Status: Acute Assessment and plan: 1. Will continue IV Vancomycin and Zosyn. 2. Pain control as needed. 3. Orthopedic consult for likely surgical intervention. Qualifiers: Septic arthritis location: hand Septic arthritis organism: due to unspecified organism Laterality: right Qualified Code(s): M00.9 - Pyogenic arthritis, unspecified (2) Hypocalcemia Current Visit: Yes Status: Acute Assessment and plan: 1. Patient received calcium supplement in ER. 2. Will recheck labs and correct as necessary. (3) Hypokalemia Current Visit: Yes Status: Acute Assessment and plan: 1. Patient received potassium supplement in ER. 2. Will recheck labs and correct as necessary. (4) DVT prophylaxis Current Visit: Yes Status: Acute Assessment and plan: 1. Heparin SQ.
[2019-02-17] MEDS: *HR* Heparin 5,000 UNIT/ML VIAL SQ SCH ×2 (05:40→19:29)
[2019-02-17 07:25] LABS: Basophils % 0.7 %; Eosinophils # 0.3 K/mcL (0.0-0.6); Eosinophils % 5.8 %; Hematocrit 34.1 % (37.5-50.1); Hemoglobin 11.4 g/dL (12.9-16.9); Immature Granulocytes % 0.2 % (0-4); Lymphocytes # 3.1 K/mcL (0.6-4.6); Lymphocytes % 52.1 %; Mean Corpuscular HGB Conc 33.4 g/dL (31.6-35.5); Mean Corpuscular Hemoglobin 30.6 pg (28.0-33.3); Mean Corpuscular Volume 91.7 fL (83.0-100.0); Monocytes # 0.5 K/mcL (0.0-1.3); Monocytes % 8.7 %; Neutrophils # 1.9 K/mcL (1.6-8.9); Platelet Count 196 K/mcL (140-400); Red Blood Count 3.72 M/mcL (4.19-5.50); Segmented Neutrophils % 32.5 %
[2019-02-17] MEDS ORDERED: Potassium Phosphate 44 MEQ in 0.9 % Sodium Chloride 250 ML IVPB ONE (07:33)
--- NOTE | 2019-02-17 07:43 | Internal Med Progress Note ---
<Ammy Bearden - Last Filed: 02/17/19 13:58> Hospitalist Progress Note - Encounter Date of Encounter: 02/17/19 Time of Encounter: 09:41 - Subjective Interval History: Pt sleeping but easy to wake. Pt states he initial injured his R middle finger a month ago when a pocket knife closed on it. Pt reprorts he took an herb "kratom" to help with the pain for about one month. He stopped a couple of weeks ago and as a result has been c/o intermittent vomiting and diarrhea. Pt denies CP, SOB, fever, chills. Pt denies IVDU, states he only smokes marijuana, denies any PMHx, including liver problems. Per FDA website, last updated 01/29/19: "The U.S. Food and Drug Administration is warning consumers not to use Mitragyna speciosa, commonly known as kratom, a plant which grows naturally in [place], [place], [place], and [place]. FDA is concerned that kratom, which affects the same opioid brain receptors as morphine, appears to have properties that expose users to the risks of addiction, abuse, and dependence." - Exam Vitals: Temp Pulse Resp BP Pulse Ox 98.1 F 55 15 94/53 99 02/17/19 07:18 02/17/19 07:18 02/17/19 07:18 02/17/19 07:18 02/17/19 07:18 Exam: Gen: NAD ENT: MMM CV: RRR no murmur or gallop, DP pulses 2/4, no LE edema Res: CTAB, no wheezes or rales MSK: R UE radial pulses intact, sensory of palmar and dorsal aspect of R hand intact, 3rd digit more edetamous than other digits with area of slight erythema distal to DIP. Area of swelling without central erythema surround the medial aspect of nail bed and DIP. TTP distal to DIP. Pt with FROM of MCP and DIP. Approximatley 1 cm linear laceration on later aspect of finger tip, appears to be healing with overlying scab, no central area of erythema/drainage. skin: warm and dry neuro: awake and alert - Assessment and Plan (1) Septic arthritis Current Visit: Yes Status: Acute Assessment and Plan: 2/2 R 3rd digit injury XR: Persistent soft tissue thickening involving the distal 3rd digit with cortical destructive changes involving the 3rd DIP joint. Findings concerning for septic arthritis and osteomyelitis. Ortho to consult, appreciate rec regarding need of surgical intervention afebrile Plan: Continue vanc zoysn ortho rec to follow Will consider MRI to evaluate osteomyelitis monitor for s/s diffuse sepsis infection (2) Anemia Current Visit: Yes Status: Acute Assessment and Plan: Decreased from 12.6 to 11.4 this morning. No obvious signs of bleeding, no hematemesis. Plan: Continue to monitor Type and screen transfusion as needed (3) Hypocalcemia Current Visit: Yes Status: Acute Assessment and Plan: Improved to 8.2 Plan: Continue to monitor and replace Will get PTH (4) Hypokalemia Current Visit: Yes Status: Acute Assessment and Plan: Repeat improved to 3.6 Plan: Continue to monitor and replace (5) Hypomagnesemia Current Visit: Yes Status: Acute Assessment and Plan: Improved slightly Plan: Continue to monitor and replace (6) Hypoalbuminemia Current Visit: Yes Status: Acute Assessment and Plan: Etiology uncertain, possibly 2/2 poor diet Plan: UA pending Continue to monitor Consider nutrition consult, especially if surgical intervention is necessary (7) DVT prophylaxis Current Visit: Yes Status: Acute Assessment and Plan: Heparin sq - Time Spent with Patient Total time spent is greater than 50% in coordination of care (as documented) at patient's floor/unit and/or counseling patient: Internal Medicine: Result - Labs CBC & Chem 7: 02/17/19 06:24 02/17/19 06:24 Labs: Short CBC 02/16/19 02/17/19 Range/Units 17:24 06:24 WBC 6.5 5.9 (4.3-11.1) K/mcL Hgb 12.6 L 11.4 L (12.9-16.9) g/dL Hct 36.7 L 34.1 L (37.5-50.1) % Plt Count 256 196 (140-400) K/mcL Neutrophils # 2.9 1.9 (1.6-8.9) K/mcL BMP 02/16/19 02/16/19 17:24 23:28 Sodium 145 Potassium 2.4 L* 3.6 D Chloride 118 H Carbon Dioxide 18 L BUN 5 L Creatinine 0.42 L Glucose 67 L Calcium 5.8 L* 9.3 Liver Function 02/16/19 Range/Units 17:24 Total Bilirubin 0.3 (0.3-1.0) mg/dL Direct Bilirubin 0.1 (0.0-0.2) mg/dL AST 25 (13-39) Units/L ALT 38 (7-52) Units/L Alkaline Phosphatase 38 (34-104) Units/L Albumin 2.6 L (3.5-5.7) g/dL - ABG Interpretation ABG results: PT/INR, D-dimer PT 11.6 Seconds (9.4-12.1) 02/16/19 17:24 - Impressions Impressions Hand X-Ray 02/16/19 17:35 IMPRESSION: Persistent soft tissue thickening involving the distal 3rd digit with cortical destructive changes involving the 3rd DIP joint. Findings are again concerning for septic arthritis and osteomyelitis. D/ / Geovanny Cabral / Geovanny Cabral Interpreting Provider: Geovanny Cabral Consult Discharge Plan - Plan Referrals: Andrew Brown CNP [Primary Care Provider] - <Elenita Boss - Last Filed: 02/17/19 14:13> Hospitalist Progress Note - Encounter Date of Encounter: 02/17/19 - Exam Vitals: Temp Pulse Resp BP Pulse Ox 98.2 F 57 17 112/74 97 02/17/19 11:13 02/17/19 11:13 02/17/19 11:13 02/17/19 11:13 02/17/19 11:13 - Assessment and Plan (1) Septic arthritis Current Visit: Yes Status: Acute (2) Hypokalemia Current Visit: Yes Status: Acute (3) Hypocalcemia Current Visit: Yes Status: Acute (4) DVT prophylaxis Current Visit: Yes Status: Acute - Time Spent with Patient Total time spent is greater than 50% in coordination of care (as documented) at patient's floor/unit and/or counseling patient: Internal Medicine: Result - Labs CBC & Chem 7: 02/17/19 06:24 02/17/19 06:24 Labs: Short CBC 02/16/19 02/17/19 Range/Units 17:24 06:24 WBC 6.5 5.9 (4.3-11.1) K/mcL Hgb 12.6 L 11.4 L (12.9-16.9) g/dL Hct 36.7 L 34.1 L (37.5-50.1) % Plt Count 256 196 (140-400) K/mcL Neutrophils # 2.9 1.9 (1.6-8.9) K/mcL BMP 02/16/19 02/16/19 02/17/19 17:24 23:28 06:24 Sodium 145 144 Potassium 2.4 L* 3.6 D 3.7 Chloride 118 H 110 H Carbon Dioxide 18 L 27 BUN 5 L 8 Creatinine 0.42 L 0.75 Glucose 67 L 107 H Calcium 5.8 L* 9.3 8.2 L Liver Function 02/16/19 02/17/19 Range/Units 17:24 06:24 Total Bilirubin 0.3 0.3 (0.3-1.0) mg/dL Direct Bilirubin 0.1 (0.0-0.2) mg/dL AST 25 36 (13-39) Units/L ALT 38 50 (7-52) Units/L Alkaline Phosphatase 38 46 (34-104) Units/L Albumin 2.6 L 3.1 L (3.5-5.7) g/dL - ABG Interpretation ABG results: PT/INR, D-dimer PT 11.6 Seconds (9.4-12.1) 02/16/19 17:24 - Impressions Impressions Hand X-Ray 02/16/19 17:35 IMPRESSION: Persistent soft tissue thickening involving the distal 3rd digit with cortical destructive changes involving the 3rd DIP joint. Findings are again concerning for septic arthritis and osteomyelitis. D/ / Geovanny Cabral / Geovanny Cabral Interpreting Provider: Geovanny Cabral - Attending Attestation The history, physical exam, and medical decision making was performed by the medical student Suleiman either while I was physically present and actively involved or I personally re-performed the exam and medical decision making. I have verified the accuracy of the medical student's documentation with regards to the history, physical exam findings, and medical decision making. Mr Timmons is admitted for septic joint/osteomyelitis He recently left hospital AMA from an admission for which he was being treated for the same asleep, awakes to name, family at bedside provides most history as he is a poor historian. He deneis fevers ro chills, + pain in finger and entire hand, felt as if hands cramping last night, no n/v. no drainage from small wound. states he does eat regularly at home. admits to diarrhea after leaving hospital last time, family notes she thinks it was gastroenteritis and resolved a week ago with anti diarrhea and nexium. pt can give no details to what diarrhea looked like. no abd pain. gen- alert, awake,appears stated age eyes- pupils equal round cv- reg rate and rhythm, normal s1,s2, no murmurs appreciated, no le edema, non pitting edema to bl hands right greater than left lungs- ctabl, no wheezing, rhonchi or crackles, normal resp effort abd- soft, non tender, non distended, + bs msk- right third digit edematous, warm + erythema skin- small healing wound without drainage erythema on right third digit neuro- AAOx3, CN grossly intact Right third finger septic joint, suspected osteomyelitis XR with distal thrid digit soft tissue thickening w destruction of DIP joint concerning for septic joint and osteo -cont vanc + zosyn -Dr Roman consulted -bl cxs pending (old cxs reviewed and all negative) Hypocalemia, improved with repletion- corrects to 8.9 with albumin today, unclear etiology, check pth, cont to monitor Hypokaelmia, resolved with repletion Hypomagnesemia- IV repletion today Polysubstance abuse IVDA -check UDS Hep C hx- cmp without elevated transaminases Anemia, present in December last admit- no active bleeding, will cont to monitor vte ppx sqh <Ammy Bearden - Last Filed: 02/17/19 13:58> (1) Septic arthritis Qualifiers: Septic arthritis location: hand Septic arthritis organism: due to unspecified organism Laterality: right Qualified Code(s): M00.9 - Pyogenic arthritis, unspecified (2) Anemia Qualifiers: Anemia type: unspecified type Qualified Code(s): D64.9 - Anemia, unspecified <Elenita Boss - Last Filed: 02/17/19 14:13> (1) Septic arthritis Qualifiers: Septic arthritis location: hand Septic arthritis organism: due to unspecified organism Laterality: right Qualified Code(s): M00.9 - Pyogenic arthritis, unspecified
[2019-02-17 07:48] LABS: Alanine Aminotransferase 50 Units/L (7-52); Albumin 3.1 g/dL (3.5-5.7); Albumin/Globulin Ratio 1.6 (1.1-2.2); Alkaline Phosphatase 46 Units/L (34-104); Aspartate Amino Transferase 36 Units/L (13-39); BUN/Creatinine Ratio 11 (6-26); Bilirubin,Total 0.3 mg/dL (0.3-1.0); Blood Urea Nitrogen 8 mg/dL (6-20); Calcium 8.2 mg/dL (8.6-10.3); Carbon Dioxide 27 mEq/L (23-29); Chloride 110 mEq/L (98-107); Glucose 107 mg/dL (70-105); Magnesium 1.5 mg/dL (1.6-2.6); Osmolality,Calculated 297 (280-300); Potassium 3.7 mEq/L (3.5-5.1); Sodium 144 mEq/L (136-145); Total Protein 5.1 g/dL (6.4-8.9); eGFR For Non-African Americans > 60 (> 60)
[2019-02-17] MEDS: Piperacillin/Tazobactam 3.375 GM in 0.9 % Sodium Chloride Mini Bag 100 ML IVPB SCH ×2 (08:20→19:31)
[2019-02-17 16:07] LABS: Amphetamine Screen,Urine Negative ng/mL (Cutoff=1000); Barbiturate Screen,Urine Negative ng/mL (Cutoff=200); Benzodiazepines Screen,Urine Negative ng/mL (Cutoff=200); Cannabinoid Screen,Urine Positive ng/mL (Cutoff = 50); Cocaine Screen,Urine Negative ng/mL (Cutoff= 300); Opiate Screen,Urine Negative ng/mL (Cutoff=300); Phencyclidine Screen,Urine Negative ng/mL (Cutoff=25)
--- NOTE | 2019-02-17 16:08 | Electrocardiograph Report ---
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
[2019-02-17] MEDS: Ziprasidone 20 MG CAPSULE PO SCH (19:29)
[2019-02-18] MEDS: Piperacillin/Tazobactam 3.375 GM in 0.9 % Sodium Chloride Mini Bag 100 ML IVPB SCH ×4 (04:26→21:03)
[2019-02-18] MEDS: *HR* OxyCODONE Immed Rel 5 MG TABLET PO PRN ×3 (04:32→17:46)
[2019-02-18 05:33] LABS: VBG Ionized Calcium 1.22 mmol/L (1.15-1.35)
[2019-02-18 05:38] LABS: Basophils % 0.9 %; Eosinophils # 0.3 K/mcL (0.0-0.6); Eosinophils % 7.4 %; Hematocrit 35.3 % (37.5-50.1); Hemoglobin 11.7 g/dL (12.9-16.9); Immature Granulocytes % 0.2 % (0-4); Lymphocytes # 2.4 K/mcL (0.6-4.6); Lymphocytes % 51.9 %; Mean Corpuscular HGB Conc 33.1 g/dL (31.6-35.5); Mean Corpuscular Hemoglobin 30.8 pg (28.0-33.3); Mean Corpuscular Volume 92.9 fL (83.0-100.0); Mean Platelet Volume 9.8 fL (9.4-12.4); Monocytes # 0.4 K/mcL (0.0-1.3); Monocytes % 8.9 %; Neutrophils # 1.4 K/mcL (1.6-8.9); Platelet Count 163 K/mcL (140-400); Red Cell Distribution Width 12.9 % (11.5-14.5); Segmented Neutrophils % 30.7 %
[2019-02-18 05:42] LABS: BUN/Creatinine Ratio 9 (6-26); Blood Urea Nitrogen 7 mg/dL (6-20); Calcium 8.5 mg/dL (8.6-10.3); Carbon Dioxide 29 mEq/L (23-29); Chloride 109 mEq/L (98-107); Glucose 98 mg/dL (70-105); Magnesium 1.7 mg/dL (1.6-2.6); Osmolality,Calculated 294 (280-300); Phosphorous 4.3 mg/dL (2.7-4.5); Potassium 3.9 mEq/L (3.5-5.1); Sodium 143 mEq/L (136-145); eGFR For Non-African Americans > 60 (> 60)
[2019-02-18] MEDS: *HR* Heparin 5,000 UNIT/ML VIAL SQ SCH ×2 (06:13→17:44)
--- NOTE | 2019-02-18 07:41 | Internal Med Progress Note ---
<Ammy Bearden - Last Filed: 02/18/19 13:24> Hospitalist Progress Note - Encounter Date of Encounter: 02/18/19 Time of Encounter: 09:20 - Subjective Interval History: Pt layig in bed, awake and alert, in no distress. Pt states his finger is still in the same amount of pain. Denies any new symptoms of infection such as fevers, chills, n/v, fatigue, anorexia, decrease ROM of his injured finger - Exam Vitals: Temp Pulse Resp BP Pulse Ox 97.8 F 57 16 129/85 98 02/18/19 03:11 02/18/19 03:11 02/18/19 03:11 02/18/19 03:11 02/18/19 03:11 Exam: Gen: NAD ENT: MMM CV: RRR no murmur or gallop, DP pulses 2/4, no LE edema Res: CTAB, no wheezes or rales MSK: R UE radial pulses intact, sensory of palmar and dorsal aspect of R hand intact, 3rd digit more edetamous than other digits with area of slight erythema distal to DIP. Area of swelling without central erythema surround the medial aspect of nail bed and DIP. TTP distal to DIP. Pt with FROM of MCP and DIP. Approximatley 1 cm linear laceration on later aspect of finger tip, appears to be healing with overlying scab, no central area of erythema/drainage. skin: warm and dry neuro: awake and alert - Assessment and Plan (1) Septic arthritis Current Visit: Yes Status: Acute Assessment and Plan: Right third finger septic joint, suspected osteomyelitis XR with distal thrid digit soft tissue thickening w destruction of DIP joint concerning for septic joint and osteo Plan: -cont vanc + zosyn -Dr Roman consulted - appreciate recs will take pt to surgery tomorrow morning for amputation -bl cxs pending (old cxs reviewed and all negative) (2) Anemia Current Visit: Yes Status: Acute Assessment and Plan: h/o anemia in previous admissions no active bleeding Remains stable, increased from 11.4 to 11.7 today Plan: continue to monitor (3) Hypocalcemia Current Visit: Yes Status: Acute Assessment and Plan: Etiology unclear improved with repletion Measured at 8.5 today PTH WNL Plan: Continue to monitor and replace as needed (4) Hypokalemia Current Visit: Yes Status: Resolved Assessment and Plan: Resolved with repletion (5) Hypomagnesemia Current Visit: Yes Status: Acute Assessment and Plan: Resolved with repletion (6) Hypoalbuminemia Current Visit: Yes Status: Acute Assessment and Plan: resolved with electrolyte repletion (7) DVT prophylaxis Current Visit: Yes Status: Acute Assessment and Plan: sq heparin - Time Spent with Patient Total time spent is greater than 50% in coordination of care (as documented) at patient's floor/unit and/or counseling patient: Internal Medicine: Result - Labs CBC & Chem 7: 02/18/19 05:09 02/18/19 05:09 Labs: Short CBC 02/18/19 Range/Units 05:09 WBC 4.6 (4.3-11.1) K/mcL Hgb 11.7 L (12.9-16.9) g/dL Hct 35.3 L (37.5-50.1) % Plt Count 163 (140-400) K/mcL Neutrophils # 1.4 L (1.6-8.9) K/mcL BMP 02/17/19 02/18/19 06:24 05:09 Sodium 144 143 Potassium 3.7 3.9 Chloride 110 H 109 H Carbon Dioxide 27 29 BUN 8 7 Creatinine 0.75 0.80 Glucose 107 H 98 Calcium 8.2 L 8.5 L Liver Function 02/17/19 Range/Units 06:24 Total Bilirubin 0.3 (0.3-1.0) mg/dL AST 36 (13-39) Units/L ALT 50 (7-52) Units/L Alkaline Phosphatase 46 (34-104) Units/L Albumin 3.1 L (3.5-5.7) g/dL - ABG Interpretation ABG results: PT/INR, D-dimer PT 11.6 Seconds (9.4-12.1) 02/16/19 17:24 Consult Discharge Plan - Plan Referrals: Andrew Brown CNP [Primary Care Provider] - <Elenita Boss - Last Filed: 02/18/19 15:11> Hospitalist Progress Note - Encounter Date of Encounter: 02/18/19 - Exam Vitals: Temp Pulse Resp BP Pulse Ox 97.6 F 65 17 126/84 99 02/18/19 11:32 02/18/19 11:32 02/18/19 11:32 02/18/19 11:32 02/18/19 11:32 - Assessment and Plan (1) Septic arthritis Current Visit: Yes Status: Acute (2) Hypokalemia Current Visit: Yes Status: Resolved (3) Hypocalcemia Current Visit: Yes Status: Acute (4) DVT prophylaxis Current Visit: Yes Status: Acute - Time Spent with Patient Total time spent is greater than 50% in coordination of care (as documented) at patient's floor/unit and/or counseling patient: Internal Medicine: Result - Labs CBC & Chem 7: 02/18/19 05:09 02/18/19 05:09 Labs: Short CBC 02/18/19 Range/Units 05:09 WBC 4.6 (4.3-11.1) K/mcL Hgb 11.7 L (12.9-16.9) g/dL Hct 35.3 L (37.5-50.1) % Plt Count 163 (140-400) K/mcL Neutrophils # 1.4 L (1.6-8.9) K/mcL BMP 02/18/19 05:09 Sodium 143 Potassium 3.9 Chloride 109 H Carbon Dioxide 29 BUN 7 Creatinine 0.80 Glucose 98 Calcium 8.5 L - ABG Interpretation ABG results: PT/INR, D-dimer PT 11.6 Seconds (9.4-12.1) 02/16/19 17:24 - Attending Attestation The history, physical exam, and medical decision making was performed by the medical student Suleiman either while I was physically present and actively involved or I personally re-performed the exam and medical decision making. I have verified the accuracy of the medical student's documentation with regards to the history, physical exam findings, and medical decision making. Mr Timmons is admitted for septic joint/osteomyelitis He recently left hospital AMA from an admission for which he was being treated for the same awake, no fevers, chills, n/v. finger pain tolerable. no change to joint per pt, no drainage gen- alert, awake,appears stated age cv- reg rate and rhythm, normal s1,s2, non pitting edema to bl hands right greater than left lungs- ctabl, no wheezing, rhonchi or crackles, normal resp effort on room air msk- right third digit edematous, warm + erythema skin- small healing wound without drainage neuro- AAOx3 Right third finger septic joint, suspected osteomyelitis XR with distal thrid digit soft tissue thickening w destruction of DIP joint concerning for septic joint and osteo -cont vanc + zosyn -Dr Roman consulted and I have discussed plan with him - pt to OR in am for partial digit amputation, npo after midnight -bl cxs pending (old cxs reviewed and all negative) Hypocalemia, improved with repletion- ionized ca normal, pth normal Hypokaelmia, resolved with repletion Hypomagnesemia-resolved with repletion possibly related to herbal supplement he was taking cont to monitor Polysubstance abuse IVDA + THC Hep C hx- cmp without elevated transaminases Anemia, present in December last admit- no active bleeding, will cont to monitor vte ppx sqh <Ammy Bearden - Last Filed: 02/18/19 13:24> (1) Septic arthritis Qualifiers: Septic arthritis location: hand Septic arthritis organism: due to unspecified organism Laterality: right Qualified Code(s): M00.9 - Pyogenic arthritis, unspecified (2) Anemia Qualifiers: Anemia type: unspecified type Qualified Code(s): D64.9 - Anemia, unspecified <Elenita Boss - Last Filed: 02/18/19 15:11> (1) Septic arthritis Qualifiers: Septic arthritis location: hand Septic arthritis organism: due to unspecified organism Laterality: right Qualified Code(s): M00.9 - Pyogenic arthritis, unspecified
[2019-02-18] MEDS: Ziprasidone 20 MG CAPSULE PO SCH ×2 (08:35→17:43)
--- NOTE | 2019-02-18 09:52 | Orthopedic Consult Note ---
Date of Encounter: 02/18/19 Time of Encounter: 09:51 Assessment and Plan (1) Subacute osteomyelitis of right hand Current Visit: Yes Status: Acute I did have a very long discussion with the patient regarding the diagnosis. He does have persistent subacute to chronic osteomyelitis of the right long finger involving the distal and middle phalanges and septic arthritis of the distal interphalangeal joint. We did attempt debridement previously however he left AGAINST MEDICAL ADVICE before proper IV antibiotics could be administered. I did discuss treatment options which include repeat debridement and irrigation in 6 weeks of IV antibiotics versus middle finger amputation through the middle phalanx. Though it is possible to salvage the digit I find at this point given the clinical scenario that debridement and IV antibiotics would have a low p robability of infection eradication to the middle and distal phalanges. The patient wishes to undergo amputation through the middle phalanx in hopes of improving the chance of eradication of the infection. Given the location of the osteomyelitis and level of planned resection distal to the insertion of the flexor digitorum superficialis I do feel that a 4-6 week course of IV antibiotics will be necessary. The patient is aware the risk of needing multiple debridements and even ray deletion. The risks discussed included but were not limited to stiffness, bleeding, infection, blood clots, damage to neurovascular structures, tendons, ligaments, and bone. Also discussed was the risk of continued symptoms and possible need for further procedures. I did discuss the anesthesia risks including stroke, heart attack, and . I did discuss the reasonable, foreseeable postoperative course with the patient. The patient did wish to proceed and consent was obtained. I have reviewed each of the pertinent components of this chart and any other pertinent medical component(s) including but not limited to pertinent application of the chief complaint, history of present illness, current medi cation, medical history, allergies, family history, medical history, surgical history, social history, review of systems, vital signs, and any other portion of the pertinent patient medical record directly or indirectly involved with this patient care that is pertinent based on my medical decision process. SAMSON Biswas History of Present Illness HPI: Of note, this consult was called to me this morning. Mr. Reyes is a 33 year old male currently admitted to the hospitalist. He has known osteomyelitis the right long finger nail and distal phalanges with septic arthritis of the right long finger distal interphalangeal joint. During his prior hospital stay he underwent debridement and irrigation of the infected phalanges and distal interphalangeal joint. The plan was for 6 weeks of IV antibiotics, however the patient left AGAINST MEDICAL ADVICE. He returns after being seeing in the emergency department for persistent pain and swelling to the right long finger. Pain is sharp and achy and localized mainly to the distal phalanx, distal interphalangeal joint, and distal portion of the middle phalanx of the right long finger and is worse with use and movement and better with rest. No numbness, tingling, or any other associated signs or symptoms or modifying factors. He denies any feelings of illness. Past Med Surg Social Fam HX - Past Medical History Medical history: no medical history Additional medical history: osteomyelitis, septic arthritis Psychiatric history: anxiety, ADHD, bipolar, prior suicide attempt, previous psychiatric hospitalization - Past Surgical History Surgical History: orthopedic, other Additional surgical history: Right wrist. Right middle finger surgery - Social History Smoking Status: Light tobacco smoker Smokeless Tobacco Status: Yes Alcohol use: occasionally Drug use: marijuana - Family History Mother Family Member Ethnicity: Non- Hx Family Endocrine Disorder: Yes Medications and Allergies Citalopram [CeleXA] 20 mg PO HS 02/16/19 [History] Ziprasidone HCl [Geodon] 40 mg PO BIDWM 02/16/19 [History] Allergy/AdvReac Type Severity Reaction Status Date / Time aspirin Allergy Difficulty Verified 02/16/19 21:39 Breathing All Systems Reviewed: Constitutional -The patient denies any fevers, chills, or feelings of illness Neurologic -The patient denies any numbness, tingling, or burning pains Physical Exam - Constitutional Vitals: Temp Pulse Resp BP Pulse Ox 97.8 F 57 16 129/85 98 02/18/19 03:11 02/18/19 03:11 02/18/19 03:11 02/18/19 03:11 02/18/19 03:11 CONSTITUTIONAL -Vitals reviewed -The patient is well developed, well nourished, well groomed PSYCHIATRIC -Fully alert and oriented -Pleasant mood RIGHT UPPER EXTREMITY Moderate diffuse swelling to the right long finger. No erythema. Significant tenderness over the distal phalanx and distal interphalangeal joint. Less tenderness about the distal portion of the middle phalanx. The distal phalanx trips down. The wound on the radial aspect the digit remains and without significant drainage. He can flex and extend at the PIP joint without significant pain. The patient can actively flex and extend all digits, extend the thumb, cross the index and long fingers, make an okay sign, and oppose the thumb. The fingertips are all grossly sensate and well-perfused, and the radial artery pulse is 2+. Diagnostic Imaging: I did personally review and interpret x-rays of the right hand which show pers istent ostial lysis of the middle and distal phalanges consistent with osteomyelitis and complete destruction of the right long finger distal interphalangeal joint from septic arthritis. Results - Labs Result Diagrams: 02/18/19 05:09 02/18/19 05:09 Labs: Abnormal lab results RBC 3.80 M/mcL (4.19-5.50) L 02/18/19 05:09 Hgb 11.7 g/dL (12.9-16.9) L 02/18/19 05:09 Hct 35.3 % (37.5-50.1) L 02/18/19 05:09 Neutrophils # 1.4 K/mcL (1.6-8.9) L 02/18/19 05:09 Chloride 109 mEq/L (98-107) H 02/18/19 05:09 Calcium 8.5 mg/dL (8.6-10.3) L 02/18/19 05:09 Serum Total Protein 5.1 g/dL (6.4-8.9) L 02/17/19 06:24 Albumin 3.1 g/dL (3.5-5.7) L 02/17/19 06:24 Globulin 2.0 g/dL (2.4-3.5) L 02/17/19 06:24 U Marijuana (THC) Screen Positive ng/mL (Cutoff = 50) H 02/17/19 14:45 H & H 02/18/19 Range/Units 05:09 Hgb 11.7 L (12.9-16.9) g/dL Hct 35.3 L (37.5-50.1) % All other labs normal. Consult Discharge Plan - Plan Referrals: Andrew Brown CNP [Primary Care Provider] -
--- NOTE | 2019-02-18 18:11 | Anesthesia Evaluation PreOp ---
Addendum entered and electronically signed by Sherrie Winston MD 02/19/19 14:25: Pt had chewing tobacco in his mouth on arrival, we gave pepcid and bicitra and with perform RSI/GETA to decrease aspiration risk. Vital signs and most recent labs reviewed. 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 History: Denies Any Significant HX Other Medical History: Other (ADHD Bipolar Prior suicide attemp) Anesthesia History: No Prior Anesthetic Complications Alcohol Use: occasionally Drug use: marijuana Medications and Allergies Citalopram [CeleXA] 20 mg PO HS 02/16/19 [History] Ziprasidone HCl [Geodon] 40 mg PO BIDWM 02/16/19 [History] Allergy/AdvReac Type Severity Reaction Status Date / Time aspirin Allergy Difficulty Verified 02/16/19 21:39 Breathing - Meds/Allergy Pre-op Review Medications Reviewed: Yes Allergies Reviewed: Yes Beta Blockers on Current Med List: No Anesthesia Results - Labs 02/18/19 05:09 02/18/19 05:09 Anesthesia Exam O2 Sat Weight 72.3 kg O2 Sat by Pulse Oximetry 98 O2 Sat by Pulse Oximetry 98 O2 Sat by Pulse Oximetry 99 O2 Sat by Pulse Oximetry 98 O2 Sat by Pulse Oximetry 99 O2 Sat by Pulse Oximetry 98 Vital Signs Temp Pulse Resp BP Pulse Ox 98.3 F 106 20 148/80 97 02/16/19 16:45 02/16/19 16:45 02/16/19 16:45 02/16/19 16:45 02/16/19 16:45 Height: 5'9 Weight: 159 lbs NPO (# of Hours): MN Pain Scale: 0 - HEENT Pupil (Motor): Pupils equal, EOMI Mallampati: II Teeth: Normal Oral Opening: Greater than 3 - LUMBER MOVER LOC: Oriented LUMBER MOVER Motor: Normal RUE, Normal LUE, Normal RLE, Normal LLE, Normal Face LUMBER MOVER Sensory: Normal: RUE, LUE, RLE, LLE, Face - Cardiac Rhythm: Regular Murmur: None JVD: No Carotid Bruit: No - Pulmonary Breath Sounds: bilateral Clear Respiratory Effort: Symmetrical Anesthesia Assess/Plan ASA Score: 2 Level of consciousness: Cooperative, Oriented Anesthetic Plan: General Autologous Blood: No Monitoring Plan: Standard Monitors Recovery Plan: PACU (Discussed GA, agrees to proceed LMA #3 used previously)
[2019-02-18] MEDS: Acetaminophen 325 MG TABLET PO PRN (21:04)
[2019-02-19] MEDS: *HR* Heparin 5,000 UNIT/ML VIAL SQ SCH ×2 (06:15→18:46)
[2019-02-19] MEDS: *HR* OxyCODONE Immed Rel 5 MG TABLET PO PRN ×2 (06:20→12:34)
[2019-02-19 06:47] LABS: Basophils % 0.8 %; Eosinophils # 0.4 K/mcL (0.0-0.6); Eosinophils % 8.3 %; Hematocrit 36.7 % (37.5-50.1); Hemoglobin 12.3 g/dL (12.9-16.9); Immature Granulocytes % 0.2 % (0-4); Lymphocytes # 2.5 K/mcL (0.6-4.6); Lymphocytes % 49.9 %; Mean Corpuscular HGB Conc 33.5 g/dL (31.6-35.5); Mean Corpuscular Hemoglobin 30.7 pg (28.0-33.3); Mean Corpuscular Volume 91.5 fL (83.0-100.0); Mean Platelet Volume 9.8 fL (9.4-12.4); Monocytes # 0.5 K/mcL (0.0-1.3); Monocytes % 10.5 %; Neutrophils # 1.5 K/mcL (1.6-8.9); Platelet Count 188 K/mcL (140-400); Red Blood Count 4.01 M/mcL (4.19-5.50); Red Cell Distribution Width 12.8 % (11.5-14.5); Segmented Neutrophils % 30.3 %
[2019-02-19 07:10] LABS: BUN/Creatinine Ratio 11 (6-26); Blood Urea Nitrogen 9 mg/dL (6-20); Carbon Dioxide 30 mEq/L (23-29); Chloride 106 mEq/L (98-107); Glucose 100 mg/dL (70-105); Osmolality,Calculated 295 (280-300); Potassium 4.1 mEq/L (3.5-5.1); Sodium 143 mEq/L (136-145); eGFR For Non-African Americans > 60 (> 60)
--- NOTE | 2019-02-19 07:46 | Internal Med Progress Note ---
<Ammy Bearden - Last Filed: 02/19/19 11:10> Hospitalist Progress Note - Encounter Date of Encounter: 02/19/19 Time of Encounter: 11:10 - Subjective Interval History: Pt laying in bed. NAD. C/o consistent pain in R 3rd digit. No fevers, chills, nv/d. Pt scheduled for surgical amputation this am - Exam Vitals: Temp Pulse Resp BP Pulse Ox 97.8 F 62 18 136/91 98 02/19/19 07:11 02/19/19 07:11 02/19/19 07:11 02/19/19 07:11 02/19/19 07:11 Exam: Gen: NAD ENT: MMM CV: RRR no murmur or gallop, DP pulses 2/4, no LE edema Res: CTAB, no wheezes or rales MSK: R UE radial pulses intact, sensory of palmar and dorsal aspect of R hand intact, 3rd digit more edetamous than other digits with area of slight erythema distal to DIP. Area of swelling without central erythema surround the medial aspect of nail bed and DIP. TTP distal to DIP. Pt with FROM of MCP and DIP. Approximatley 1 cm linear laceration on later aspect of finger tip, appears to be healing with overlying scab, no central area of erythema/drainage. skin: warm and dry neuro: awake and alert - Assessment and Plan (1) Septic arthritis Current Visit: Yes Status: Acute Assessment and Plan: Right third finger septic joint, suspected osteomyelitis XR with distal thrid digit soft tissue thickening w destruction of DIP joint concerning for septic joint and osteo Plan: -cont vanc + zosyn -Dr Roman consulted - appreciate recs will take pt to surgery today for amputation -bl cxs pending (old cxs reviewed and all negative) (2) Anemia Current Visit: Yes Status: Acute Assessment and Plan: h/o anemia in previous admissions no active bleeding Remains stable Plan: continue to monitor (3) Hypocalcemia Current Visit: Yes Status: Resolved (4) Hypokalemia Current Visit: Yes Status: Resolved (5) Hypomagnesemia Current Visit: Yes Status: Resolved (6) Hypoalbuminemia Current Visit: Yes Status: Resolved (7) DVT prophylaxis Current Visit: Yes Status: Acute Assessment and Plan: sq heparin - Time Spent with Patient Total time spent is greater than 50% in coordination of care (as documented) at patient's floor/unit and/or counseling patient: Internal Medicine: Result - Labs CBC & Chem 7: 02/19/19 06:13 02/19/19 06:13 Labs: Short CBC 02/19/19 Range/Units 06:13 WBC 4.9 (4.3-11.1) K/mcL Hgb 12.3 L (12.9-16.9) g/dL Hct 36.7 L (37.5-50.1) % Plt Count 188 (140-400) K/mcL Neutrophils # 1.5 L (1.6-8.9) K/mcL BMP 02/19/19 06:13 Sodium 143 Potassium 4.1 Chloride 106 Carbon Dioxide 30 H BUN 9 Creatinine 0.85 Glucose 100 Calcium 9.0 - ABG Interpretation ABG results: PT/INR, D-dimer PT 11.6 Seconds (9.4-12.1) 02/16/19 17:24 Consult Discharge Plan - Plan Referrals: Andrew Brown CNP [Primary Care Provider] - <Olga Arzate - Last Filed: 02/19/19 17:18> Hospitalist Progress Note - Encounter Date of Encounter: 02/19/19 - Exam Vitals: Temp Pulse Resp BP Pulse Ox 97.9 F 79 16 148/94 96 02/19/19 16:57 02/19/19 16:57 02/19/19 16:57 02/19/19 16:57 02/19/19 16:57 - Assessment and Plan (1) Septic arthritis Current Visit: Yes Status: Acute (2) Hypokalemia Current Visit: Yes Status: Resolved (3) Hypocalcemia Current Visit: Yes Status: Resolved (4) DVT prophylaxis Current Visit: Yes Status: Acute - Time Spent with Patient Total time spent is greater than 50% in coordination of care (as documented) at patient's floor/unit and/or counseling patient: Internal Medicine: Result - Labs CBC & Chem 7: 02/19/19 06:13 02/19/19 06:13 Labs: Short CBC 02/19/19 Range/Units 06:13 WBC 4.9 (4.3-11.1) K/mcL Hgb 12.3 L (12.9-16.9) g/dL Hct 36.7 L (37.5-50.1) % Plt Count 188 (140-400) K/mcL Neutrophils # 1.5 L (1.6-8.9) K/mcL BMP 02/19/19 06:13 Sodium 143 Potassium 4.1 Chloride 106 Carbon Dioxide 30 H BUN 9 Creatinine 0.85 Glucose 100 Calcium 9.0 - ABG Interpretation ABG results: PT/INR, D-dimer PT 11.6 Seconds (9.4-12.1) 02/16/19 17:24 - Impressions Impressions Finger X-Ray 02/19/19 14:55 IMPRESSION: Intraprocedural fluoroscopic spot images as above. See separate procedure report for more information. D/ : / 02/19/2019 15:31:37 Anthony Mahmood MD / scott Interpreting Provider: Anthony Mahmood MD Fluoroscopy 02/19/19 14:55 IMPRESSION: Intraprocedural fluoroscopic spot images as above. See separate procedure report for more information. D/ : / 02/19/2019 15:31:37 Anthony Mahmood MD / scott Interpreting Provider: Anthony Mahmood MD - Attending Attestation I examined this patient and my medical decision-making was reviewed with the Resident Physician and Medical Student. I agree with the documented findings, disposition and treatment plan as described except to the extent set forth below. No acute events. Patient to go to OR today for finger amputation. VS: reviewed, physical exam shows male in no acute distress, finger is swollen and tender, ROM limited from pain, sensation preserved. Labs: reviewed. Continue IV antibiotics, follow-up cultures, surgery today. <Ammy Bearden - Last Filed: 02/19/19 11:10> (1) Septic arthritis Qualifiers: Septic arthritis location: hand Septic arthritis organism: due to unspecified organism Laterality: right Qualified Code(s): M00.9 - Pyogenic arthritis, unspecified (2) Anemia Qualifiers: Anemia type: unspecified type Qualified Code(s): D64.9 - Anemia, unspecified <Olga Arzate - Last Filed: 02/19/19 17:18> (1) Septic arthritis Qualifiers: Septic arthritis location: hand Septic arthritis organism: due to unspecified organism Laterality: right Qualified Code(s): M00.9 - Pyogenic arthritis, unspecified
[2019-02-19] MEDS: Ziprasidone 20 MG CAPSULE PO SCH ×2 (08:08→16:42)
[2019-02-19] MEDS: Piperacillin/Tazobactam 3.375 GM in 0.9 % Sodium Chloride Mini Bag 100 ML IVPB SCH ×2 (08:08→16:42)
[2019-02-19] MEDS ORDERED: *HR* Propofol 200 MG/20 ML VIAL IVP ONE (13:45)
[2019-02-19] MEDS ORDERED: Lidocaine -MPF 2% 2 ML VIAL ONE (13:45)
[2019-02-19] MEDS ORDERED: *HR* FentaNYL (PF) 100 MCG/2 ML VIAL ONE ×2 (13:45→14:58)
[2019-02-19] MEDS ORDERED: *HR* Midazolam HCl 2 MG/2 ML VIAL ONE (13:45)
[2019-02-19] MEDS ORDERED: Bupivacaine/EPI 1:200k 0.5%PF 10 ML VIAL ONE (13:48)
[2019-02-19] MEDS ORDERED: Lidocaine 1% 20 ML MDV ONE (13:49)
[2019-02-19] MEDS ORDERED: Famotidine 20 MG/2 ML VIAL ONE (14:13)
[2019-02-19] MEDS ORDERED: *HR* Promethazine 25 MG/ML VIAL IVP PRN ×2 (14:34→23:02)
[2019-02-19] MEDS ORDERED: Ondansetron 4 MG/2 ML VIAL IVP ONE (14:34)
[2019-02-19] MEDS ORDERED: *HR* Meperidine 25 MG/ML SYRINGE IVP PRN ×2 (14:34→23:02)
[2019-02-19] MEDS ORDERED: *HR* HYDROmorphone (PF) 1 MG/ML SYRINGE IVP PRN ×2 (14:34→23:02)
[2019-02-19] MEDS ORDERED: *HR* OxyCODONE Immed Rel 5 MG TABLET PO PRN (14:34)
[2019-02-19] MEDS ORDERED: Ringers Solution, Lactated 1,000 ML IVC SCH (14:45)
[2019-02-19] MEDS ORDERED: Dexamethasone 4 MG/ML VIAL ONE (14:53)
[2019-02-19] MEDS ORDERED: Ondansetron 4 MG/2 ML VIAL ONE (14:53)
[2019-02-19] MEDS ORDERED: Esmolol 100 MG/10 ML VIAL IVP ONE (15:07)
--- NOTE | 2019-02-19 15:42 | Orthopedic Operative Note ---
Date of procedure: 02/19/19 Procedure: OPERATIVE REPORT SURGEON: Camacho Roman MD PREOPERATIVE DIAGNOSIS: Right long finger osteomyelitis and distal interphalangeal joint septic arthritis POSTOPERATIVE DIAGNOSIS: Same PROCEDURE: Right long finger amputation through the middle phalanx ANESTHESIA: Gen. anesthesia SPECIMENS: Right long finger tip sent for biopsy and swabs sent for culture PREOPERATIVE NOTE The surgical plan was reviewed with the patient. The risks, benefits, alternatives, and potential complications of this procedure were discussed with the patient including injury to veins, arteries, nerves, tendons, ligaments, and bone. Also discussed were the risks of infection, bleeding, pain, blood clots, the possible need for a blood transfusion, the possible need for further procedures, heart attack, stroke, and . Additional risks include persistent symptoms despite surgery and the need for further debridements or more proximal amputations. All of this was explained in simple terms, and the patient verbalized understanding and wished to proceed. Consent was given to proceed with surgery. PROCEDURE: The patient was seen in the preoperative holding area where the identify and the consent were confirmed. The right long finger was marked. Final questions were answered. The patient was brought back to the operating room and placed supine on the operating room table. A huddle was performed with the patient and all vital surgical team members confirming patient identity, the correct procedure, and the correct operative site. Gen. anesthesia was administered. The operative extremity was prepped and draped in the usual sterile fashion. A surgical time out was performed immediately preceding the incision with all personnel in the operating room to confirm patient identity, the correct operative site and extremity, correct radiographic studies, availability of appropriate surgical equipment, and agreement on the planned procedure. The tourniquet was inflated without exsanguination. A fishmouth incision was made over the middle phalanx. Full-thickness flaps were elevated and dissection proceeded carefully down to the flexor tendon sheath which was opened. The flexor digitorum profundus was tenotomized and allowed to retract. The FDS insertion was preserved. The digital nerves were pulled back, transected, and allowed to retract. The digital arteries were cauterized. There was no gross purulence in the wound. No concern for persistent infection at the amputation site. The wound was copiously irrigated and loosely closed with interrupted nylon stitches to allow drainage. The tourniquet was deflated and a soft, sterile dressing was applied followed by a forearm based splint. The instrument, sponge, and needle counts were correct after wound closure. POST OPERATIVE PLAN: Continue IV antibiotics in the meantime. We will begin early gentle range of motion exercises. Was there an land surveyor assistant present: No Estimated blood loss (cc): 1
[2019-02-19] MEDS ORDERED: Ringers Solution, Lactated 1,000 ML ONE (15:43)
[2019-02-19] MEDS ORDERED: *HR* Labetalol 20 MG/4 ML SYRINGE IVP ONE (15:51)
[2019-02-19] MEDS: *HR* Labetalol 20 MG/4 ML SYRINGE IVP PRN ×4 (15:52→16:06)
[2019-02-19] MEDS: Acetaminophen 325 MG TABLET PO PRN (21:52)
[2019-02-19] MEDS ORDERED: Naloxone 0.4 MG/ML INJ IVP PRN (23:02)
[2019-02-20] MEDS: Piperacillin/Tazobactam 3.375 GM in 0.9 % Sodium Chloride Mini Bag 100 ML IVPB SCH ×3 (00:05→16:22)
[2019-02-20] MEDS: *HR* OxyCODONE Immed Rel 5 MG TABLET PO PRN ×5 (00:06→20:06)
[2019-02-20] MEDS: Acetaminophen 325 MG TABLET PO PRN ×3 (05:09→19:15)
[2019-02-20] MEDS: *HR* Heparin 5,000 UNIT/ML VIAL SQ SCH ×2 (06:03→16:23)
--- NOTE | 2019-02-20 07:55 | Orthopedics Progress Note ---
Date of Encounter: 02/20/19 Time of Encounter: 07:54 - Assessment and Plan (1) Subacute osteomyelitis of right hand Current Visit: Yes Status: Acute Subjective Interval history: S: Expected post op pain to the right long finger tip. O: AFVSS Wound in good repair with minimal bleeding NV intact A: Post amputation of the right long finger tip. P: Continue abx per primary team Due to pain, will continue splint for next 1 to 2 days and anticipate beginning ROM thereafter. Objective Vital signs: Vital Signs Temp Pulse Resp BP Pulse Ox 02/20/19 06:44 98.2 F 92 20 174/100 98 02/20/19 03:18 98.1 F 78 16 114/67 97 02/19/19 22:52 98.0 F 84 16 130/81 98 02/19/19 18:39 97.5 F L 86 14 128/70 97 02/19/19 17:14 97.8 F 83 17 143/74 96 02/19/19 16:57 97.9 F 79 16 148/94 96 02/19/19 16:12 98.1 F 66 16 141/96 96 02/19/19 16:02 98.1 F 66 16 141/96 96 02/19/19 15:52 97.6 F 77 16 138/104 96 02/19/19 15:42 97.6 F 85 16 136/90 96 02/19/19 15:32 97.6 F 88 16 124/89 96 02/19/19 12:01 98.0 F 63 18 125/84 97 Intake and Output 02/19/19 02/19/19 02/20/19 15:59 23:59 07:59 Intake Total 100 / 100 950 / 950 Output Total Balance 99 / 99 950 / 950 Intake: IV Fluids 100 / 100 100 / 100 Zosyn 3.375 GM In 0.9 % Sodium 100 / 100 100 / 100 Chloride (Mini-Bag +) 100 ML @ 25 mls/hr IVPB Q8H [facility] Rx#: [id number] Oral 850 / 850 Output: Estimated Blood Loss - Labs CBC & BMP: 02/19/19 06:13 02/19/19 06:13 Labs: Abnormal lab results RBC 4.01 M/mcL (4.19-5.50) L 02/19/19 06:13 Hgb 12.3 g/dL (12.9-16.9) L 02/19/19 06:13 Hct 36.7 % (37.5-50.1) L 02/19/19 06:13 Neutrophils # 1.5 K/mcL (1.6-8.9) L 02/19/19 06:13 Carbon Dioxide 30 mEq/L (23-29) H 02/19/19 06:13 Serum Total Protein 5.1 g/dL (6.4-8.9) L 02/17/19 06:24 Albumin 3.1 g/dL (3.5-5.7) L 02/17/19 06:24 Globulin 2.0 g/dL (2.4-3.5) L 02/17/19 06:24 U Marijuana (THC) Screen Positive ng/mL (Cutoff = 50) H 02/17/19 14:45 Consult Discharge Plan - Plan Referrals: Andrew Brown CNP [Primary Care Provider] -
[2019-02-20] MEDS: Ziprasidone 20 MG CAPSULE PO SCH ×2 (08:02→16:23)
[2019-02-20] MEDS ORDERED: Aminoglycoside Consult 1 EACH MC ONE (08:21)
[2019-02-20 09:04] LABS: Basophils % 0.2 %; Eosinophils % 0.1 %; Hematocrit 38.9 % (37.5-50.1); Hemoglobin 12.9 g/dL (12.9-16.9); Immature Granulocytes % 0.2 % (0-4); Lymphocytes # 1.8 K/mcL (0.6-4.6); Lymphocytes % 18.8 %; Mean Corpuscular HGB Conc 33.2 g/dL (31.6-35.5); Mean Corpuscular Hemoglobin 30.2 pg (28.0-33.3); Mean Corpuscular Volume 91.1 fL (83.0-100.0); Mean Platelet Volume 9.9 fL (9.4-12.4); Monocytes # 0.5 K/mcL (0.0-1.3); Monocytes % 5.7 %; Neutrophils # 7.1 K/mcL (1.6-8.9); Platelet Count 234 K/mcL (140-400); Red Blood Count 4.27 M/mcL (4.19-5.50); Red Cell Distribution Width 12.5 % (11.5-14.5)
[2019-02-20 09:15] LABS: BUN/Creatinine Ratio 14 (6-26); Blood Urea Nitrogen 12 mg/dL (6-20); Calcium 9.4 mg/dL (8.6-10.3); Carbon Dioxide 28 mEq/L (23-29); Chloride 102 mEq/L (98-107); Glucose 105 mg/dL (70-105); Osmolality,Calculated 288 (280-300); Potassium 3.6 mEq/L (3.5-5.1); Sodium 139 mEq/L (136-145); eGFR For Non-African Americans > 60 (> 60)
--- NOTE | 2019-02-20 14:56 | Internal Med Progress Note ---
Hospitalist Progress Note - Encounter Date of Encounter: 02/20/19 Time of Encounter: 15:12 - Subjective Interval History: No acute events. Patient does have complains of finger pain post-op, denies fevers/chills. - Exam Vitals: Temp Pulse Resp BP Pulse Ox 98.4 F 85 17 132/88 99 02/20/19 11:42 02/20/19 11:42 02/20/19 11:42 02/20/19 11:42 02/20/19 11:42 Exam: Gen: NAD ENT: MMM CV: RRR no murmur or gallop, DP pulses 2/4, no LE edema Res: CTAB, no wheezes or rales MSK: R UE radial pulses intact, sensory of palmar and dorsal aspect of R hand intact, 3rd digit more edetamous than other digits with area of slight erythema distal to DIP. Area of swelling without central erythema surround the medial aspect of nail bed and Right hand: wound of amputation clean dry, sutures in tact. Neuro: awake and alert - Assessment and Plan (1) Subacute osteomyelitis of right hand Current Visit: Yes Status: Acute Assessment and Plan: S/P amputation of finger. Continue vanc/zosyn Follow-up cultures, negative to date Patient will need to be observed and receive 3 days of IV antibiotics and will then re evaluate if he needs to be discharged with IV or PO medications, will continue treatment until Sunday. (2) Hypokalemia Current Visit: Yes Status: Resolved (3) Hypocalcemia Current Visit: Yes Status: Resolved (4) DVT prophylaxis Current Visit: Yes Status: Acute (5) Depression Current Visit: No Status: Acute - Time Spent with Patient Total time spent is greater than 50% in coordination of care (as documented) at patient's floor/unit and/or counseling patient: Internal Medicine: Result - Labs CBC & Chem 7: 02/20/19 08:19 02/20/19 08:19 Labs: Short CBC 02/20/19 Range/Units 08:19 WBC 9.5 D (4.3-11.1) K/mcL Hgb 12.9 (12.9-16.9) g/dL Hct 38.9 (37.5-50.1) % Plt Count 234 (140-400) K/mcL Neutrophils # 7.1 (1.6-8.9) K/mcL BMP 02/20/19 08:19 Sodium 139 Potassium 3.6 Chloride 102 Carbon Dioxide 28 BUN 12 Creatinine 0.85 Glucose 105 Calcium 9.4 - ABG Interpretation ABG results: PT/INR, D-dimer PT 11.6 Seconds (9.4-12.1) 02/16/19 17:24 - Impressions Impressions Finger X-Ray 02/19/19 14:55 IMPRESSION: Intraprocedural fluoroscopic spot images as above. See separate procedure report for more information. D/ / 02/19/2019 15:31:37 Anthony Mahmood MD / scott Interpreting Provider: Anthony Mahmood MD Fluoroscopy 02/19/19 14:55 IMPRESSION: Intraprocedural fluoroscopic spot images as above. See separate procedure report for more information. D/ : / 02/19/2019 15:31:37 Anthony Mahmood MD / scott Interpreting Provider: Anthony Mahmood MD Consult Discharge Plan - Plan Referrals: Andrew Brown CNP [Primary Care Provider] -
[2019-02-20] MEDS: Ketorolac 15 MG/ML VIAL IVP SCH (16:23)
[2019-02-21] MEDS: Piperacillin/Tazobactam 3.375 GM in 0.9 % Sodium Chloride Mini Bag 100 ML IVPB SCH ×4 (00:02→23:50)
[2019-02-21] MEDS: *HR* OxyCODONE Immed Rel 5 MG TABLET PO PRN ×6 (00:02→21:16)
[2019-02-21] MEDS: Ketorolac 15 MG/ML VIAL IVP SCH ×4 (00:02→18:29)
[2019-02-21] MEDS: Acetaminophen 325 MG TABLET PO PRN ×2 (05:40→20:01)
[2019-02-21] MEDS: *HR* Heparin 5,000 UNIT/ML VIAL SQ SCH ×2 (05:40→17:13)
[2019-02-21 06:53] LABS: BUN/Creatinine Ratio 18 (6-26); Blood Urea Nitrogen 16 mg/dL (6-20); Calcium 8.9 mg/dL (8.6-10.3); Carbon Dioxide 26 mEq/L (23-29); Chloride 107 mEq/L (98-107); Glucose 127 mg/dL (70-105); Osmolality,Calculated 295 (280-300); Potassium 3.6 mEq/L (3.5-5.1); Sodium 141 mEq/L (136-145); eGFR For Non-African Americans > 60 (> 60)
--- NOTE | 2019-02-21 07:07 | Orthopedics Progress Note ---
Date of Encounter: 02/21/19 Time of Encounter: 07:06 - Assessment and Plan (1) Subacute osteomyelitis of right hand Current Visit: Yes Status: Acute Subjective Interval history: S: Improving post op pain to the right long finger tip. O: AFVSS Wound in good repair with minimal bleeding NV intact A: Post amputation of the right long finger tip P: Continue abx per primary team ROM exercises to the right residual long finger, focusing on PIP motion. Objective Vital signs: Vital Signs Temp Pulse Resp BP Pulse Ox 02/21/19 02:25 97.8 F 70 16 119/81 97 02/20/19 22:53 98.1 F 85 17 121/73 99 02/20/19 19:48 98.7 F 76 17 142/88 97 02/20/19 16:22 98.0 F 71 18 146/86 99 02/20/19 11:42 98.4 F 85 17 132/88 99 Intake and Output 02/20/19 02/20/19 02/21/19 15:59 23:59 07:59 Intake Total 100 / 100 460 / 460 Balance 100 / 100 460 / 460 Intake: IV Fluids 100 / 100 100 / 100 Zosyn 3.375 GM In 0.9 % Sodium 100 / 100 100 / 100 Chloride (Mini-Bag +) 100 ML @ 25 mls/hr IVPB Q8H [facility] Rx#: [id number] Oral 360 / 360 Other: Meal Dinner Percent of Meal Consumed 50% # Voids 2 Weight 73.5 kg Patient Weight 02/21/19 23:59 Weight 73.5 kg - Labs CBC & BMP: 02/20/19 08:19 02/21/19 05:58 Labs: Abnormal lab results Glucose 127 mg/dL (70-105) H 02/21/19 05:58 Serum Total Protein 5.1 g/dL (6.4-8.9) L 02/17/19 06:24 Albumin 3.1 g/dL (3.5-5.7) L 02/17/19 06:24 Globulin 2.0 g/dL (2.4-3.5) L 02/17/19 06:24 U Marijuana (THC) Screen Positive ng/mL (Cutoff = 50) H 02/17/19 14:45 Consult Discharge Plan - Plan Referrals: Andrew Brown CNP [Primary Care Provider] -
[2019-02-21] MEDS: Ziprasidone 20 MG CAPSULE PO SCH ×2 (08:22→17:16)
[2019-02-21] MEDS: Ipratropium/Albuterol Neb 3 ML IH PRN ×2 (12:42→21:10)
--- NOTE | 2019-02-21 15:09 | Internal Med Progress Note ---
Hospitalist Progress Note - Encounter Date of Encounter: 02/21/19 Time of Encounter: 11:06 - Subjective Interval History: No acute events. Denies fevers/chills. Hand pain more stable. - Exam Vitals: Temp Pulse Resp BP Pulse Ox 97.7 F 58 14 123/78 97 02/21/19 10:56 02/21/19 10:56 02/21/19 12:43 02/21/19 10:56 02/21/19 12:43 Exam: Gen: NAD ENT: MMM CV: RRR no murmur or gallop, DP pulses 2/4, no LE edema Res: CTAB, no wheezes or rales MSK: R UE radial pulses intact, sensory of palmar and dorsal aspect of R hand intact, 3rd digit s/p amputation with minimal surrounding erythema. Right hand: wound of amputation clean dry, sutures in tact. Neuro: awake and alert - Assessment and Plan (1) Subacute osteomyelitis of right hand Current Visit: Yes Status: Acute Assessment and Plan: S/P amputation of finger. Continue vanc/zosyn Follow-up cultures, negative to date Patient will need to be observed and receive IV antibiotics over this weekend and will then re evaluate if he needs to be discharged with IV or PO medications, will continue treatment until Sunday (two more days). (2) Hypokalemia Current Visit: Yes Status: Resolved Assessment and Plan: 1. Patient received potassium supplement in ER. 2. Will recheck labs and correct as necessary. (3) Hypocalcemia Current Visit: Yes Status: Resolved Assessment and Plan: 1. Patient received calcium supplement in ER. 2. Will recheck labs and correct as necessary. (4) DVT prophylaxis Current Visit: Yes Status: Acute Assessment and Plan: 1. Heparin SQ. (5) Depression Current Visit: No Status: Acute - Time Spent with Patient Total time spent is greater than 50% in coordination of care (as documented) at patient's floor/unit and/or counseling patient: Internal Medicine: Result - Labs CBC & Chem 7: 02/20/19 08:19 02/21/19 05:58 Labs: BMP 02/21/19 05:58 Sodium 141 Potassium 3.6 Chloride 107 Carbon Dioxide 26 BUN 16 Creatinine 0.91 Glucose 127 H Calcium 8.9 - ABG Interpretation ABG results: PT/INR, D-dimer PT 11.6 Seconds (9.4-12.1) 02/16/19 17:24 Consult Discharge Plan - Plan Referrals: Andrew Brown CNP [Primary Care Provider] - (5) Depression Qualifiers: Depression Type: major depressive disorder
[2019-02-22] MEDS: *HR* OxyCODONE Immed Rel 5 MG TABLET PO PRN ×5 (01:18→20:38)
[2019-02-22] MEDS: *HR* Heparin 5,000 UNIT/ML VIAL SQ SCH ×2 (07:16→16:21)
[2019-02-22] MEDS: Ziprasidone 20 MG CAPSULE PO SCH ×2 (07:36→16:20)
[2019-02-22] MEDS: Piperacillin/Tazobactam 3.375 GM in 0.9 % Sodium Chloride Mini Bag 100 ML IVPB SCH ×2 (07:37→16:19)
[2019-02-22 07:48] LABS: BUN/Creatinine Ratio 16 (6-26); Blood Urea Nitrogen 14 mg/dL (6-20); Calcium 9.1 mg/dL (8.6-10.3); Carbon Dioxide 26 mEq/L (23-29); Chloride 106 mEq/L (98-107); Glucose 77 mg/dL (70-105); Osmolality,Calculated 293 (280-300); Potassium 3.8 mEq/L (3.5-5.1); Sodium 142 mEq/L (136-145); eGFR For Non-African Americans > 60 (> 60)
--- NOTE | 2019-02-22 09:40 | Orthopedics Progress Note ---
Date of Encounter: 02/22/19 Time of Encounter: 09:39 - Assessment and Plan (1) Subacute osteomyelitis of right hand Current Visit: Yes Status: Acute Subjective Interval history: S: Improving post op pain to the right long finger tip. O: AFVSS Wound in good repair with minimal bleeding NV intact A: Post amputation of the right long finger tip P: Continue abx per primary team ROM exercises to the right residual long finger, focusing on PIP motion. Objective Vital signs: Vital Signs Temp Pulse Resp BP Pulse Ox 02/22/19 08:04 97.8 F 67 17 128/81 99 02/21/19 22:12 97.9 F 87 18 133/76 98 02/21/19 21:12 16 02/21/19 19:56 98 02/21/19 18:31 98.0 F 77 16 139/90 99 02/21/19 15:23 98.3 F 72 15 137/84 99 02/21/19 12:43 14 97 02/21/19 10:56 97.7 F 58 14 123/78 97 Intake and Output 02/21/19 02/22/19 02/22/19 23:59 07:59 15:59 Intake Total 340 / 1260 100 / 1180 1080 / 1180 Output Total 300 / 300 500 / 500 Balance 40 / 960 100 / 680 580 / 680 Intake: IV Fluids 100 / 300 100 / 100 Zosyn 3.375 GM In 0.9 % Sodium 100 / 300 100 / 100 Chloride (Mini-Bag +) 100 ML @ 25 mls/hr IVPB Q8H [facility] Rx#: [id number] Oral 240 / 960 1080 / 1080 Output: Urine 300 / 300 500 / 500 Other: Meal Dinner Breakfast Percent of Meal Consumed 20% 100% - Labs CBC & BMP: 02/20/19 08:19 02/22/19 04:35 Labs: Abnormal lab results RBC 4.01 M/mcL (4.19-5.50) L 02/19/19 06:13 Hgb 12.3 g/dL (12.9-16.9) L 02/19/19 06:13 Hct 36.7 % (37.5-50.1) L 02/19/19 06:13 1.5 K/mcL (1.6-8.9) L 02/19/19 06:13 Potassium 2.4 mEq/L (3.5-5.1) L* 02/16/19 17:24 Chloride 109 mEq/L (98-107) H 02/18/19 05:09 Carbon Dioxide 30 mEq/L (23-29) H 02/19/19 06:13 BUN 5 mg/dL (6-20) L 02/16/19 17:24 0.42 mg/dL (0.70-1.30) L 02/16/19 17:24 Glucose 127 mg/dL (70-105) H 02/21/19 05:58 Calcium 8.5 mg/dL (8.6-10.3) L 02/18/19 05:09 Phosphorus 1.4 mg/dL (2.7-4.5) L 02/16/19 17:24 Magnesium 1.5 mg/dL (1.6-2.6) L 02/17/19 06:24 5.1 g/dL (6.4-8.9) L 02/17/19 06:24 3.1 g/dL (3.5-5.7) L 02/17/19 06:24 2.0 g/dL (2.4-3.5) L 02/17/19 06:24 U Marijuana (THC) Screen Positive ng/mL (Cutoff = 50) H 02/17/19 14:45 Consult Discharge Plan - Plan Referrals: Andrew Brown CNP [Primary Care Provider] -
--- NOTE | 2019-02-22 11:18 | Internal Med Progress Note ---
Hospitalist Progress Note - Encounter Date of Encounter: 02/22/19 Time of Encounter: 11:16 - Subjective Interval History: No complaints, no acute events. Denies fevers, ROM improving. - Exam Vitals: Temp Pulse Resp BP Pulse Ox 97 F L 67 17 110/66 97 02/22/19 11:00 02/22/19 11:00 02/22/19 11:00 02/22/19 11:00 02/22/19 11:00 Exam: Gen: NAD ENT: MMM CV: RRR no murmur or gallop, DP pulses 2/4, no LE edema Res: CTAB, no wheezes or rales MSK: R UE radial pulses intact, sensory of palmar and dorsal aspect of R hand intact, 3rd digit s/p amputation erythema resolved. Right hand: wound of amputation clean dry, sutures in tact. Neuro: awake and alert - Assessment and Plan (1) Subacute osteomyelitis of right hand Current Visit: Yes Status: Acute Assessment and Plan: S/P amputation of finger. Continue vanc/zosyn Cultures negative growth Continue few more days of IV antibiotics. ID consult in 2 days with services available. (2) Hypokalemia Current Visit: Yes Status: Resolved Assessment and Plan: 1. Patient received potassium supplement in ER. 2. Will recheck labs and correct as necessary. (3) Hypocalcemia Current Visit: Yes Status: Resolved Assessment and Plan: 1. Patient received calcium supplement in ER. 2. Will recheck labs and correct as necessary. (4) DVT prophylaxis Current Visit: Yes Status: Acute Assessment and Plan: 1. Heparin SQ. (5) Depression Current Visit: No Status: Acute - Time Spent with Patient Total time spent is greater than 50% in coordination of care (as documented) at patient's floor/unit and/or counseling patient: Internal Medicine: Result - Labs CBC & Chem 7: 02/20/19 08:19 02/22/19 04:35 Labs: BMP 02/22/19 04:35 Sodium 142 Potassium 3.8 Chloride 106 Carbon Dioxide 26 BUN 14 Creatinine 0.90 Glucose 77 Calcium 9.1 - ABG Interpretation ABG results: PT/INR, D-dimer PT 11.6 Seconds (9.4-12.1) 02/16/19 17:24 Consult Discharge Plan - Plan Referrals: Kevin,Andrew, [employer]PER[employer] [Primary Care Provider] - (5) Depression Qualifiers: Depression Type: major depressive disorder
[2019-02-23] MEDS: Piperacillin/Tazobactam 3.375 GM in 0.9 % Sodium Chloride Mini Bag 100 ML IVPB SCH ×4 (00:23→23:12)
[2019-02-23] MEDS: *HR* OxyCODONE Immed Rel 5 MG TABLET PO PRN ×6 (01:32→23:12)
[2019-02-23 04:39] LABS: BUN/Creatinine Ratio 17 (6-26); Blood Urea Nitrogen 15 mg/dL (6-20); Calcium 9.3 mg/dL (8.6-10.3); Carbon Dioxide 26 mEq/L (23-29); Chloride 104 mEq/L (98-107); Glucose 118 mg/dL (70-105); Osmolality,Calculated 286 (280-300); Potassium 3.9 mEq/L (3.5-5.1); Sodium 137 mEq/L (136-145); eGFR For Non-African Americans > 60 (> 60)
[2019-02-23] MEDS: *HR* Heparin 5,000 UNIT/ML VIAL SQ SCH ×2 (05:07→18:18)
[2019-02-23] MEDS: Ziprasidone 20 MG CAPSULE PO SCH ×2 (07:51→17:42)
--- NOTE | 2019-02-23 13:04 | Internal Med Progress Note ---
Hospitalist Progress Note - Encounter Date of Encounter: 02/23/19 Time of Encounter: 13:03 - Subjective Interval History: No complaints, no acute events. Denies fevers. Finger pain more of soreness today. - Exam Vitals: Temp Pulse Resp BP Pulse Ox 97.9 F 86 17 117/75 97 02/23/19 11:02 02/23/19 11:02 02/23/19 11:02 02/23/19 11:02 02/23/19 11:02 Exam: Gen: NAD ENT: MMM CV: RRR no murmur or gallop, DP pulses 2/4, no LE edema Res: CTAB, no wheezes or rales MSK: R UE radial pulses intact, sensory of palmar and dorsal aspect of R hand intact, 3rd digit s/p amputation erythema resolved. Right hand: wound of amputation clean dry, sutures in tact. Neuro: awake and alert - Assessment and Plan (1) Subacute osteomyelitis of right hand Current Visit: Yes Status: Acute Assessment and Plan: S/P amputation of finger. Continue vanc/zosyn Cultures negative growth Continue few more days of IV antibiotics. ID consult for tomorrow (2) Hypokalemia Current Visit: Yes Status: Resolved Assessment and Plan: 1. Patient received potassium supplement in ER. 2. Will recheck labs and correct as necessary. (3) Hypocalcemia Current Visit: Yes Status: Resolved Assessment and Plan: 1. Patient received calcium supplement in ER. 2. Will recheck labs and correct as necessary. (4) Depression Current Visit: No Status: Acute (5) DVT prophylaxis Current Visit: Yes Status: Acute Assessment and Plan: 1. Heparin SQ. - Time Spent with Patient Total time spent is greater than 50% in coordination of care (as documented) at patient's floor/unit and/or counseling patient: Internal Medicine: Result - Labs CBC & Chem 7: 02/20/19 08:19 02/23/19 04:03 Labs: BMP 02/23/19 04:03 Sodium 137 Potassium 3.9 Chloride 104 Carbon Dioxide 26 BUN 15 Creatinine 0.86 Glucose 118 H Calcium 9.3 - ABG Interpretation ABG results: PT/INR, D-dimer PT 11.6 Seconds (9.4-12.1) 02/16/19 17:24 Consult Discharge Plan - Plan Referrals: Kevin,Andrew, [employer] [Primary Care Provider] - (4) Depression Qualifiers: Depression Type: major depressive disorder
[2019-02-24 02:01] LABS: BUN/Creatinine Ratio 15 (6-26); Blood Urea Nitrogen 22 mg/dL (6-20); Calcium 9.8 mg/dL (8.6-10.3); Carbon Dioxide 28 mEq/L (23-29); Chloride 102 mEq/L (98-107); Glucose 105 mg/dL (70-105); Osmolality,Calculated 288 (280-300); Sodium 137 mEq/L (136-145); eGFR For Non-African Americans 56 (> 60)
[2019-02-24] MEDS: *HR* Heparin 5,000 UNIT/ML VIAL SQ SCH ×2 (03:22→17:42)
[2019-02-24] MEDS: *HR* OxyCODONE Immed Rel 5 MG TABLET PO PRN ×3 (03:23→12:06)
[2019-02-24] MEDS: Piperacillin/Tazobactam 3.375 GM in 0.9 % Sodium Chloride Mini Bag 100 ML IVPB SCH ×2 (07:47→17:40)
[2019-02-24] MEDS: Ziprasidone 20 MG CAPSULE PO SCH ×2 (07:49→17:40)
--- NOTE | 2019-02-24 08:14 | Internal Med Progress Note ---
<Karan Green - Last Filed: 02/24/19 10:22> Hospitalist Progress Note - Encounter Date of Encounter: 02/24/19 Time of Encounter: 09:49 - Subjective Interval History: No acute events overnight. Patient reports he has some soreness in his right third digit. He reports in the past he has had trouble urinating with urinary hesitancy and frequency. - Exam Vitals: Temp Pulse Resp BP Pulse Ox 98.1 F 62 20 123/79 98 02/24/19 06:28 02/24/19 06:28 02/24/19 06:28 02/24/19 06:28 02/24/19 06:28 Exam: General: pleasant, without distress Cardiovascualr: Regular rate and rhythm with no murmur, absent gallops or rubs, absent pedal edema, radial pulses 2 out of 4 Lungs: Clear to auscultation bilaterally, not in respiratory distress Abdomen: Soft nontender, nondistended positive bowel sounds, absent hepatomegaly Skin: warm and dry, absent rash, absent open wounds and nodules MSK: Right third digit bandaged, without drainage or erythema Neuro: Alert oriented 3 Psych: good insight and judgment - Assessment and Plan (1) Subacute osteomyelitis of right hand Current Visit: Yes Status: Acute Assessment and Plan: Status post amputation of third digit Patient was on vancomycin and Zosyn since admission Blood cultures and intraoperative cultures negative for growth Consult infectious disease for antibiotic recommendations (2) Acute kidney injury Current Visit: Yes Status: Acute Assessment and Plan: Patient's kidney function worsened in the past 24 hours Baseline kidney function is treated for greater than 60 and currently GFR is at 56 We will obtain urinalysis, urine sodium, urine creatinine Random vancomycin level was 2 Repeat BMP (3) Depression Current Visit: Yes Status: Acute Assessment and Plan: Continue Geodon (4) DVT prophylaxis Current Visit: Yes Status: Acute Assessment and Plan: Heparin subcutaneous - Time Spent with Patient Total time spent is greater than 50% in coordination of care (as documented) at patient's floor/unit and/or counseling patient: Internal Medicine: Result - Labs CBC & Chem 7: 02/20/19 08:19 02/24/19 01:03 Labs: BMP 02/24/19 01:03 Sodium 137 Potassium 4.0 Chloride 102 Carbon Dioxide 28 BUN 22 H Creatinine 1.43 H Glucose 105 Calcium 9.8 - ABG Interpretation ABG results: PT/INR, D-dimer PT 11.6 Seconds (9.4-12.1) 02/16/19 17:24 Consult Discharge Plan - Plan Referrals: Andrew Brown CNP [Primary Care Provider] - <Fay Arzateul Canelolaina - Last Filed: 02/24/19 14:28> Hospitalist Progress Note - Encounter Date of Encounter: 02/24/19 - Exam Vitals: Temp Pulse Resp BP Pulse Ox 98.2 F 75 15 100/69 99 02/24/19 10:39 02/24/19 10:39 02/24/19 10:39 02/24/19 10:39 02/24/19 10:39 - Assessment and Plan (1) Subacute osteomyelitis of right hand Current Visit: Yes Status: Acute (2) Hypokalemia Current Visit: Yes Status: Resolved (3) Hypocalcemia Current Visit: Yes Status: Resolved (4) Depression Current Visit: Yes Status: Acute (5) DVT prophylaxis Current Visit: Yes Status: Acute - Time Spent with Patient Total time spent is greater than 50% in coordination of care (as documented) at patient's floor/unit and/or counseling patient: Internal Medicine: Result - Labs CBC & Chem 7: 02/20/19 08:19 02/24/19 01:03 Labs: BMP 02/24/19 01:03 Sodium 137 Potassium 4.0 Chloride 102 Carbon Dioxide 28 BUN 22 H Creatinine 1.43 H Glucose 105 Calcium 9.8 - ABG Interpretation ABG results: PT/INR, D-dimer PT 11.6 Seconds (9.4-12.1) 02/16/19 17:24 - Attending Attestation I examined this patient and my medical decision-making was reviewed with the Resident Physician. I agree with the documented findings, disposition and treatment plan as described except to the extent set forth below. _ <Karan Green - Last Filed: 02/24/19 10:22> (3) Depression Qualifiers: Depression Type: major depressive disorder <Olga Arzate - Last Filed: 02/24/19 14:28> (4) Depression Qualifiers: Depression Type: major depressive disorder
--- NOTE | 2019-02-24 08:42 | Orthopedics Progress Note ---
Date of Encounter: 02/24/19 Time of Encounter: 08:41 - Assessment and Plan (1) Subacute osteomyelitis of right hand Current Visit: Yes Status: Acute Subjective Interval history: S: Improving post op pain to the right long finger tip. Slept better last night O: AFVSS Wound healing well No redness No drainage NV intact Creatinine noted A: Post amputation of the right long finger tip P: Continue abx per primary team; adjust related to elevated creatinine ROM exercises to the right residual long finger, focusing on PIP motion. Objective Vital signs: Vital Signs Temp Pulse Resp BP Pulse Ox 02/24/19 06:28 98.1 F 62 20 123/79 98 02/24/19 02:52 97.5 F L 77 16 106/69 92 02/23/19 23:20 97.5 F L 73 16 123/85 98 02/23/19 18:24 98.6 F 82 16 137/76 98 02/23/19 15:19 98 F 83 17 114/82 98 02/23/19 11:02 97.9 F 86 17 117/75 97 Intake and Output 02/23/19 02/24/19 02/24/19 23:59 07:59 15:59 Intake Total 200 / 1460 100 / 100 Output Total 625 / 925 Balance -425 / 535 100 / 100 Intake: IV Fluids 200 / 300 100 / 100 Zosyn 3.375 GM In 0.9 % Sodium 200 / 300 100 / 100 Chloride (Mini-Bag +) 100 ML @ 25 mls/hr IVPB Q8H [facility] Rx#: [id number] Output: Urine 625 / 925 Other: # Voids 1 Weight 73.2 kg Patient Weight 02/24/19 23:59 Weight 73.2 kg - Labs CBC & BMP: 02/20/19 08:19 02/24/19 01:03 Labs: Abnormal lab results RBC 4.01 M/mcL (4.19-5.50) L 02/19/19 06:13 Hgb 12.3 g/dL (12.9-16.9) L 02/19/19 06:13 Hct 36.7 % (37.5-50.1) L 02/19/19 06:13 1.5 K/mcL (1.6-8.9) L 02/19/19 06:13 Potassium 2.4 mEq/L (3.5-5.1) L* 02/16/19 17:24 Chloride 109 mEq/L (98-107) H 02/18/19 05:09 Carbon Dioxide 30 mEq/L (23-29) H 02/19/19 06:13 BUN 22 mg/dL (6-20) H 02/24/19 01:03 1.43 mg/dL (0.70-1.30) H 02/24/19 01:03 Est GFR (Non-Af Amer) 56 (> 60) L 02/24/19 01:03 Glucose 118 mg/dL (70-105) H 02/23/19 04:03 Calcium 8.5 mg/dL (8.6-10.3) L 02/18/19 05:09 Phosphorus 1.4 mg/dL (2.7-4.5) L 02/16/19 17:24 Magnesium 1.5 mg/dL (1.6-2.6) L 02/17/19 06:24 5.1 g/dL (6.4-8.9) L 02/17/19 06:24 3.1 g/dL (3.5-5.7) L 02/17/19 06:24 2.0 g/dL (2.4-3.5) L 02/17/19 06:24 U Marijuana (THC) Screen Positive ng/mL (Cutoff = 50) H 02/17/19 14:45 Consult Discharge Plan - Plan Referrals: Andrew Brwon CNP [Primary Care Provider] -
--- NOTE | 2019-02-24 11:08 | Infectious Disease Consult ---
Infectious Disease-Consult - Encounter Date/Time Date of Encounter: 02/24/19 Time of Encounter: 11:06 - Data of Consult Patient: new to practice Reason for consult: Right hand osteomyelitis Consult date: 02/24/19 Requesting Physician: Olga Arzate MD Primary Care Provider: Andrew Brown CNP - [facility] HPI: Mr. 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 The patient was admitted to the hospital for for hypokalemia, hypocalcemia, and septic arthritis. We are consulted for for further workup and treatment recommendations for right third finger osteomyelitis. Briefly, the patient is a 33-year-old male with a past medical history as stated above. The patient presented to the emergency department on the day of admission with complaints of worsening right third finger pain, redness, and swelling. Upon arrival, he was afebrile. He was tachycardic, but was otherwise hemodynamically stable. Laboratory studies revealed a normal white blood cell count, renal function, lactic acid, LFTs, ESR, and CRP. He had a right hand x- ray that showed findings consistent with septic arthritis and osteomyelitis of the third finger. He was noted to be hypokalemic and hypocalcemic and received replacement of these electrolytes. He was started empirically on IV vancomycin and Zosyn and admitted to the hospital for further evaluation. Since admission, the patient has remained afebrile and hemodynamically stable. His white blood cell count has remained normal. He was evaluated by orthopedics and taken to the operating room for where he underwent a right long finger amputation due to middle phalanx. Intraoperative pathology is pending. Cultures are negative. Today, his creatinine is elevated at 1.43. Post-op, his antibiotics were De-escalated to IV Zosyn only, which she is currently on now. We have been asked to evaluate and make further recommendations. During my exam today, the patient states he sustained an injury to the right hand third digit about 2 months ago when he attempted to close a pocket knife and cut his finger. He states the wound healed over, but he later developed redness and pain and swelling overlying the DIP joint. He was seen at urgent care and placed on oral clindamycin and referred to orthopedics. He was admitted to the hospital 01/23/[address] Greco on in the office. On 01/24/19, he underwent incision and drainage with irrigation and debridement of the right long finger by Dr. Cotton. Pathology was positive for osteomyelitis, but the cultures were negative. He ended up signing out AMA and was placed on a ten-day course of Bactrim which he states he completed. Prior to admission, he tells me he was taking an [id number] herbal remedy called Shanda Gamestom to help with the pain. He states he stopped taking it a few days prior to presentation and was experiencing withdrawal symptoms prior to admission that included some chills and rigors. He denies any known fevers. Denies headache or neck pain. Denies chest pain, shortness of breath, or cough. Denies nausea, vomiting, diarrhea, or constipation. Denies abdominal pain or urinary complaints. Denies oral thrush or skin lesions. Reports some mild postoperative pain. The patient lives at home alone. He is on disability secondary to his schizophrenia. He denies any tobacco or alcohol use. States he smokes marijuana on a daily basis. Urine drug screen obtained during his previous admission came back positive for cocaine and benzodiazepines. He tells me that the person he buys his marijuana from also sells cocaine so is not sure if it was laced with something. He is unsure why his urine drug screen came back posi tive for benzodiazepines. He is adamant about not being on any illicit drugs other than the marijuana. He does have a dog at home. Denies any bites or scratches. He has known hep C positive secondary to tattoos obtained in penitentiary. He states he was in penitentiary back in his early 20s. - ROS Review of Systems: All systems reviewed and no additional remarkable complaints except as stated. - Results CBC & Chem 7: 02/20/19 08:19 02/25/19 05:49 - Exam Vitals: Temp Pulse Resp BP Pulse Ox 98.2 F 75 15 100/69 99 02/24/19 10:39 02/24/19 10:39 02/24/19 10:39 02/24/19 10:39 02/24/19 10:39 Exam: Head: Atraumatic, normal inspection, normocephalic. Eye: EOMI, PERRLA, no scleral icterus noted. ENT: Mucous membranes moist. No odontogenic infection noted. Neck: Normal inspection, no meningismus. Respiratory: Clear to auscultation. No rales, respiratory distress, rhonchi, or wheezes noted. Cardiovascular: Regular rate and rhythm, S1 and S2 audible. No murmurs, rubs, or gallops. GI: Soft, nondistended, normal bowel sounds. Extremities:No joint swelling, pedal edema, or tenderness noted. Right hand third digit surgical site with dressing clean, dry, and intact. Back: Normal inspection. No vertebral tenderness noted. Neurological: Alert, oriented 3, no focal deficits. Psychiatric: normal affect, normal mood. Skin: Dry, intact, warm. Normal color. No rashes. Citalopram [CeleXA] 20 mg PO HS 02/16/19 [History] Ziprasidone HCl [Geodon] 40 mg PO BIDWM 02/16/19 [History] Allergy/AdvReac Type Severity Reaction Status Date / Time aspirin Allergy Difficulty Verified 02/16/19 21:39 Breathing - Assessment and Plan (1) Subacute osteomyelitis of right hand Current Visit: Yes Status: Acute Location: Right hand third finger. Causative organism: Unclear. Likely secondary to traumatic injury back in December. Status post I&D and I&D 01/24/[address] Roman. Pathology was positive for osteomyelitis, but the cultures were negative. The patient signed out AMA and was discharged with a 10 day course of oral Bactrim. X-ray of the right hand 02/16/19 showed persistent findings concerning for septic arthritis and osteo-mellitus of the right hand third digit. Orthopedics consult. Status post right long finger amputation through the middle phalanx 02/19/[address] Cotton. Intraoperative cultures are negative. Pathology is pending. Discussed Intra-Op findings with Dr. Cotton who tells me that he only took when he absolutely had to since the patient wanted to keep as much of his fingers possible. He states he went just proximal to where the bone did not appear infected to perform the amputation. Preop ESR 4, CRP less than 5. Treated with vancomycin and Zosyn preop. Currently on IV Zosyn. SNOMED Code(s): 94575555 (2) Acute kidney injury Current Visit: Yes Status: Acute Etiology: Unclear. Continue to trend. Dose adjust antibiotics and avoid nephrotoxins. Vancomycin discontinued. SNOMED Code(s): 57003393 (3) Hypocalcemia Current Visit: Yes Status: Resolved Replacement per the primary team. SNOMED Code(s): 6657135 (4) Hypokalemia Current Visit: Yes Status: Resolved Replacement per the primary team. SNOMED Code(s): 68303255 (5) Hepatitis C Current Visit: Yes Status: Acute Known hep C positive. States he contracted hep C from penitentiary tattoos. Treatment naive. Consider referral to GI as an outpatient for treatment. Qualifiers: Viral hepatitis chronicity: chronic Hepatic coma status: without hepatic coma Qualified Code(s): B18.2 - Chronic viral hepatitis C SNOMED Code(s): 10458408 - Recommendations Recommendations: Check ESR and CRP. Wound care and activity per the orthopedics team. Continue vancomycin IV. Pharmacy to dose. Goal trough proximally 15. Discontinue Zosyn. Start cefepime 2 g IV every 12 hours. Start flagyl 500mg PO TID until anaerobic cultures finalize. Duration of treatment depends on the clinical picture. Given that orthopedics was unable to remove the entire digit at the request of the patient, we would like to pursue 6 weeks of IV antibiotics to ensure that we aggressively treat this infection. I did discuss the patient's history of drug use with him. He is very open and honest with me about the use of his marijuana on a daily basis, but adamantly declines the use of IV drugs now or in the past. marine services technician to assist with discharge planning. VAT consult for PICC placement prior to discharge. Will need weekly CBC, BUN/Cr, ESR, CRP, Vanc trough. Will need weekly PICC care per protocol. Follow up with ID two weeks post-discharge. Past Med Surg Social Fam HX - Past Medical History Medical history: no medical history Additional medical history: osteomyelitis, septic arthritis Psychiatric history: anxiety, ADHD, bipolar, prior suicide attempt, previous psychiatric hospitalization - Past Surgical History Surgical History: orthopedic, other Additional surgical history: Right wrist. Right middle finger surgery - Social History Smoking Status: Light tobacco smoker Smokeless Tobacco Status: Yes Alcohol use: occasionally Drug use: marijuana - Family History Mother Family Member Ethnicity: Non- Hx Family Endocrine Disorder: Yes Consult Discharge Plan - Plan Referrals: Jillian Leo CNP [Advanced Practice Nurse] - 03/13/19 1:45 pm Andrew Brown CNP [Primary Care Provider] - - Attending Attestation I have personally performed a face to face evaluation on this patient. I have reviewed and agree with the care plan. History and Exam by me shows: Assessment and plan: Subacute osteomyelitis of the right hand causative organism unknown status post I&D by Dr. Cotton 01/24/2019 patient signed out AMA status post amputation through the middle phalanx 02/19/2019 Intra-Op cultures are negative to date. Acute kidney injury Hepatitis C Recommendations Continue vancomycin, cefepime and Flagyl for now Duration of treatment depends on the clinical picture. We will discuss with the orthopedics team [place] monitor labs for drug toxicity We will need a PICC line placed
[2019-02-24 14:29] LABS: Bilirubin,Urine Negative (Negative); Blood,Urine Negative (Negative); Clarity,Urine Clear (Clear); Color,Urine Yellow (Yellow); Glucose,Urine (UA) Normal (Normal); Ketones,Urine Negative (Negative); Leukocyte Esterase,Urine Negative (Negative); Nitrite,Urine Negative (Negative); Protein,Urine Negative (Neg-Trace); Specific Gravity,Urine 1.018 (1.010-1.025); Urobilinogen,Urine Normal (Normal)
[2019-02-24 14:48] LABS: Sodium, Urine 96.6 mEq/L
[2019-02-24 14:55] LABS: Amphetamine Screen,Urine Negative ng/mL (Cutoff=1000); Barbiturate Screen,Urine Negative ng/mL (Cutoff=200); Benzodiazepines Screen,Urine Negative ng/mL (Cutoff=200); Cannabinoid Screen,Urine Negative ng/mL (Cutoff = 50); Cocaine Screen,Urine Negative ng/mL (Cutoff= 300); Opiate Screen,Urine Negative ng/mL (Cutoff=300); Phencyclidine Screen,Urine Negative ng/mL (Cutoff=25)
[2019-02-24] MEDS: OXYCODONE Oral CONC 10 MG/0.5 ML ORAL.SYG SL PRN (17:39)
[2019-02-24] MEDS: Acetaminophen 325 MG TABLET PO PRN (19:56)
[2019-02-25] MEDS: Piperacillin/Tazobactam 3.375 GM in 0.9 % Sodium Chloride Mini Bag 100 ML IVPB SCH (00:46)
[2019-02-25] MEDS: OXYCODONE Oral CONC 10 MG/0.5 ML ORAL.SYG SL PRN ×3 (03:23→20:05)
[2019-02-25] MEDS: *HR* Heparin 5,000 UNIT/ML VIAL SQ SCH ×2 (05:46→18:34)
[2019-02-25] MEDS ORDERED: Cefepime HCl 2,000 MG in Water for inj. (sterile) 20 ML 20 ML IVP SCH (06:00)
[2019-02-25 06:20] LABS: BUN/Creatinine Ratio 21 (6-26); Blood Urea Nitrogen 20 mg/dL (6-20); Carbon Dioxide 28 mEq/L (23-29); Chloride 103 mEq/L (98-107); Glucose 101 mg/dL (70-105); Osmolality,Calculated 291 (280-300); Potassium 4.4 mEq/L (3.5-5.1); Sodium 139 mEq/L (136-145); eGFR For Non-African Americans > 60 (> 60)
--- NOTE | 2019-02-25 07:49 | Internal Med Progress Note ---
<Karan Green - Last Filed: 02/25/19 08:42> Hospitalist Progress Note - Encounter Date of Encounter: 02/25/19 Time of Encounter: 08:42 - Subjective Interval History: No acute events overnight. Patient reports he is okay to go to a facility to receive IV antibiotics. - Exam Vitals: Temp Pulse Resp BP Pulse Ox 97.3 F L 77 19 128/79 99 02/25/19 06:59 02/25/19 06:59 02/25/19 06:59 02/25/19 06:59 02/25/19 06:59 Exam: General: pleasant, without distress Cardiovascualr: Regular rate and rhythm with no murmur, absent gallops or rubs, absent pedal edema, radial pulses 2 out of 4 Lungs: Clear to auscultation bilaterally, not in respiratory distress Abdomen: Soft nontender, nondistended positive bowel sounds, absent hepatomegaly Skin: warm and dry, absent rash, absent open wounds and nodules MSK: Right third digit bandaged, without drainage or erythema Neuro: Alert oriented 3 Psych: good insight and judgment - Assessment and Plan (1) Subacute osteomyelitis of right hand Current Visit: Yes Status: Acute Assessment and Plan: Yesterday infectious disease was consulted for antibiotic recommendations for subacute osteomyelitis of the right third digit. Patient will need up to 4-6 weeks of IV antibiotics vancomycin, cefepime, Flagyl. We will have PICC line placed once patient has a accepting facility. He will need weekly CBC, BUN/creatinine, ESR, CRP, living trough. He will follow-up with infectious disease 2 weeks after discharge. (2) Acute kidney injury Current Visit: Yes Status: Acute Assessment and Plan: Repeat kidney function is back to baseline Retroperitoneal ultrasound was negative (3) Depression Current Visit: Yes Status: Acute Assessment and Plan: Continue Geodon (4) DVT prophylaxis Current Visit: Yes Status: Acute Assessment and Plan: Heparin subcutaneous - Time Spent with Patient Total time spent is greater than 50% in coordination of care (as documented) at patient's floor/unit and/or counseling patient: Internal Medicine: Result - Labs CBC & Chem 7: 02/20/19 08:19 02/25/19 05:49 Labs: BMP 02/25/19 05:49 Sodium 139 Potassium 4.4 Chloride 103 Carbon Dioxide 28 BUN 20 Creatinine 0.96 Glucose 101 Calcium 10.0 Urine 02/24/19 Range/Units 14:00 Urine Color Yellow (Yellow) Urine Clarity Clear (Clear) Urine pH 6.0 (5.0-8.0) pH Units Ur Specific [place] 1.018 (1.010-1.025) Urine Protein Negative (Neg-Trace) mg/dL Urine Glucose (UA) Normal (Normal) mg/dL - ABG Interpretation ABG results: PT/INR, D-dimer PT 11.6 Seconds (9.4-12.1) 02/16/19 17:24 - Impressions Impressions Retroperitoneum Ultrasound 02/24/19 16:30 IMPRESSION: Negative renal ultrasound. D/ / Celeste Duff MD / Celeste Duff MD Interpreting Provider: Celeste Duff MD Consult Discharge Plan - Plan Referrals: Jillian Leo CNP [Advanced Practice Nurse] - 03/13/19 1:45 pm Andrew Brown CNP [Primary Care Provider] - <Olga Arzate - Last Filed: 02/25/19 14:26> Hospitalist Progress Note - Encounter Date of Encounter: 02/25/19 - Exam Vitals: Temp Pulse Resp BP Pulse Ox 98.4 F 84 17 123/79 100 02/25/19 10:46 02/25/19 10:46 02/25/19 10:46 02/25/19 10:46 02/25/19 10:46 - Assessment and Plan (1) Subacute osteomyelitis of right hand Current Visit: Yes Status: Acute (2) Hypokalemia Current Visit: Yes Status: Resolved (3) Hypocalcemia Current Visit: Yes Status: Resolved (4) Depression Current Visit: Yes Status: Acute (5) DVT prophylaxis Current Visit: Yes Status: Acute - Time Spent with Patient Total time spent is greater than 50% in coordination of care (as documented) at patient's floor/unit and/or counseling patient: Internal Medicine: Result - Labs CBC & Chem 7: 02/20/19 08:19 02/25/19 05:49 Labs: BMP 02/25/19 05:49 Sodium 139 Potassium 4.4 Chloride 103 Carbon Dioxide 28 BUN 20 Creatinine 0.96 Glucose 101 Calcium 10.0 Urine 02/24/19 Range/Units 14:00 Urine Color Yellow (Yellow) Urine Clarity Clear (Clear) Urine pH 6.0 (5.0-8.0) pH Units Ur Specific [place] 1.018 (1.010-1.025) Urine Protein Negative (Neg-Trace) mg/dL Urine Glucose (UA) Normal (Normal) mg/dL - ABG Interpretation ABG results: PT/INR, D-dimer PT 11.6 Seconds (9.4-12.1) 02/16/19 17:24 - Impressions Impressions Retroperitoneum Ultrasound 02/24/19 16:30 IMPRESSION: Negative renal ultrasound. D/ / Celeste Duff MD / Celeste Duff MD Interpreting Provider: Celeste Duff MD - Attending Attestation I examined this patient and my medical decision-making was reviewed with the Resident Physician. I agree with the documented findings, disposition and treatment plan as described except to the extent set forth below. <Karan Green - Last Filed: 02/25/19 08:42> (3) Depression Qualifiers: Depression Type: major depressive disorder <Olga Arzate - Last Filed: 02/25/19 14:26> (4) Depression Qualifiers: Depression Type: major depressive disorder
[2019-02-25 09:25] LABS: C-Reactive Protein < 5 mg/L (Less than 10)
[2019-02-25] MEDS: metroNIDAZOLE 500 MG TABLET PO SCH ×2 (09:30→18:43)
[2019-02-25] MEDS: Ziprasidone 20 MG CAPSULE PO SCH ×2 (09:31→16:06)
--- NOTE | 2019-02-25 11:26 | Infectious Disease Progress No ---
ID Progress Note Date of Encounter: 02/25/19 Time of Encounter: 11:24 - Subjective Subjective: Patient seen and examined. No acute events noted overnight. The patient states overall he feels well, but is tired. Complains of some soreness to the surgical site. Denies fevers, chills, or rigors. Denies chest pain, shortness of breath, or cough. Reports some intermittent nausea, but denies vomiting. Denies abdominal pain. Reports some difficulty starting his urine stream. Denies dysuria or frequency or hematuria. Denies back or extremity pain. Denies oral thrush or new skin lesions. - Objective CBC & Chem 7: 02/20/19 08:19 02/25/19 05:49 - Exam Vitals: Temp Pulse Resp BP Pulse Ox 98.4 F 84 17 123/79 100 02/25/19 10:46 02/25/19 10:46 02/25/19 10:46 02/25/19 10:46 02/25/19 10:46 Exam: Head: Atraumatic, normal inspection, normocephalic. Eye: EOMI, PERRLA, no scleral icterus noted. ENT: Mucous membranes moist. No odontogenic infection noted. Neck: Normal inspection, no meningismus. Respiratory: Clear to auscultation. No rales, respiratory distress, rhonchi, or wheezes noted. Cardiovascular: Regular rate and rhythm, S1 and S2 audible. No murmurs, rubs, or gallops. GI: Soft, nondistended, normal bowel sounds. Extremities:No joint swelling, pedal edema, or tenderness noted. Right hand third digit surgical site with dressing clean, dry, and intact. Back: Normal inspection. No vertebral tenderness noted. Neurological: Alert, oriented 3, no focal deficits. Psychiatric: normal affect, normal mood. Skin: Dry, intact, warm. Normal color. No rashes. - Assessment and Plan (1) Subacute osteomyelitis of right hand Current Visit: Yes Status: Acute Location: Right hand third finger. Causative organism: Unclear. Likely secondary to traumatic injury back in December. Status post I&D and I&D 01/24/[address] Roman. Pathology was positive for osteomyelitis, but the cultures were negative. The patient signed out AMA and was discharged with a 10 day course of oral Bactrim. X-ray of the right hand 02/16/19 showed persistent findings concerning for septic arthritis and osteo-mellitus of the right hand third digit. Orthopedics consult. Status post right long finger amputation through the middle phalanx 02/19/[address] Cotton. Intraoperative cultures are negative. Discussed Intra-Op findings with Dr. Cotton who tells me that he only took when he absolutely had to since the patient wanted to keep as much of his finger as possible. He states he went just proximal to where the bone did not appear infected to perform the amputation. Preop ESR 4, CRP less than 5. Treated with vancomycin and Zosyn preop. Currently on IV Vanc, Zosyn and flagyl. SNOMED Code(s): 56661396 (2) Acute kidney injury Current Visit: Yes Status: Acute Etiology: Unclear. Resolved. Lab error vs. other? Dose adjust antibiotics and avoid nephrotoxins. Vancomycin discontinued. SNOMED Code(s): 34506230 (3) Hypocalcemia Current Visit: Yes Status: Resolved Replacement per the primary team. SNOMED Code(s): 2068045 (4) Hypokalemia Current Visit: Yes Status: Resolved Replacement per the primary team. SNOMED Code(s): 86926644 (5) Hepatitis C Current Visit: Yes Status: Acute Known hep C positive. States he contracted hep C from intermediate tattoos. Treatment naive. Consider referral to as an outpatient for treatment. Qualifiers: Viral hepatitis chronicity: chronic Hepatic coma status: without hepatic coma Qualified Code(s): B18.2 - Chronic viral hepatitis C SNOMED Code(s): 05254259 - Recommendations Recommendations: Wound care and activity per the orthopedics team. Continue vancomycin IV. Pharmacy to dose. Goal trough proximally 15. Discontinue cefepime. Start Rocephin 2 grams IV daily. Discontinue flagyl. Duration of treatment depends on the clinical picture. Given that orthopedics was unable to remove the entire digit at the request of the patient, we would like to pursue 6 weeks of IV antibiotics to ensure that we aggressively treat this infection. I did discuss the patient's history of drug use with him. He is very open and honest with me about the use of his marijuana on a daily basis, but adamantly declines the use of IV drugs now or in the past. pupil personnel services director to assist with discharge planning. VAT consult for PICC placement prior to discharge. Will need weekly CBC, BUN/Cr, ESR, CRP, Vanc trough. Will need weekly PICC care per protocol. Follow up with ID 03/13/19 at 1345. Consult Discharge Plan - Plan Referrals: Jillian Leo CNP [Advanced Practice Nurse] - 03/13/19 1:45 pm Andrew Brown CNP [Primary Care Provider] - 03/04/19 8:30 am - Attending Attestation I have personally performed a face to face evaluation on this patient. I have reviewed and agree with the care plan. History and Exam by me shows: Assessment and plan: Subacute osteomyelitis of the right hand causative organism unknown status post I&D by Dr. Cotton 01/24/2019 patient signed out AMA status post amputation through the middle phalanx 02/19/2019 Intra-Op cultures are negative to date. Acute kidney injury Hepatitis C Recommendations Continue vancomycin, cefepime and Flagyl for now Duration of treatment depends on the clinical picture. We will discuss with the orthopedics team [place] monitor labs for drug toxicity We will need a PICC line placed
[2019-02-25] MEDS: cefTRIAXone 2,000 MG in Water for inj. (sterile) 20 ML 20 ML IVP SCH (16:05)
[2019-02-25] MEDS: Acetaminophen 325 MG TABLET PO PRN (16:06)
[2019-02-26] MEDS: OXYCODONE Oral CONC 10 MG/0.5 ML ORAL.SYG SL PRN ×3 (04:44→20:57)
[2019-02-26] MEDS: *HR* Heparin 5,000 UNIT/ML VIAL SQ SCH ×2 (05:00→16:37)
[2019-02-26] MEDS: Ziprasidone 20 MG CAPSULE PO SCH ×2 (08:14→16:37)
--- NOTE | 2019-02-26 09:50 | Internal Med Progress Note ---
<Karan Green - Last Filed: 02/26/19 09:48> Hospitalist Progress Note - Encounter Date of Encounter: 02/26/19 Time of Encounter: 09:49 - Subjective Interval History: No acute events overnight. Patient has no concerns. She is currently awaiting approval for acceptance by SNF and thereafter will need insurance authorization. - Exam Vitals: Temp Pulse Resp BP Pulse Ox 98.2 F 86 16 116/70 98 02/26/19 06:55 02/26/19 06:55 02/26/19 06:55 02/26/19 06:55 02/26/19 06:55 Exam: General: pleasant, without distress Cardiovascualr: Regular rate and rhythm with no murmur, absent gallops or rubs, absent pedal edema, radial pulses 2 out of 4 Lungs: Clear to auscultation bilaterally, not in respiratory distress Abdomen: Soft nontender, nondistended positive bowel sounds, absent hepatomegaly Skin: warm and dry, absent rash, absent open wounds and nodules MSK: Right third digit without drainage or erythema Neuro: Alert oriented 3 Psych: good insight and judgment - Assessment and Plan (1) Subacute osteomyelitis of right hand Current Visit: Yes Status: Acute Assessment and Plan: Patient will need up to 4-6 weeks of IV antibiotics vancomycin, cefepime, Flagyl. We will have PICC line placed once patient has a accepting facility. He will need weekly CBC, BUN/creatinine, ESR, CRP, living trough. He will follow-up with infectious disease 2 weeks after discharge. Awaiting placement (2) Depression Current Visit: Yes Status: Acute Assessment and Plan: Continue Geodon (3) DVT prophylaxis Current Visit: Yes Status: Acute Assessment and Plan: heparin subcutaneous - Time Spent with Patient Total time spent is greater than 50% in coordination of care (as documented) at patient's floor/unit and/or counseling patient: Internal Medicine: Result - Labs CBC & Chem 7: 02/20/19 08:19 02/25/19 05:49 - ABG Interpretation ABG results: PT/INR, D-dimer PT 11.6 Seconds (9.4-12.1) 02/16/19 17:24 Consult Discharge Plan - Plan Referrals: Jillian Leo CNP [Advanced Practice Nurse] - 03/13/19 1:45 pm Andrew Brown CNP [Primary Care Provider] - 03/04/19 8:30 am <Elenita Boss - Last Filed: 02/26/19 12:28> Hospitalist Progress Note - Encounter Date of Encounter: 02/26/19 - Exam Vitals: Temp Pulse Resp BP Pulse Ox 98.4 F 100 16 129/77 100 02/26/19 11:32 02/26/19 11:32 02/26/19 11:32 02/26/19 11:32 02/26/19 11:32 - Assessment and Plan (1) Depression Current Visit: Yes Status: Acute (2) Hypokalemia Current Visit: Yes Status: Resolved (3) Hypocalcemia Current Visit: Yes Status: Resolved (4) DVT prophylaxis Current Visit: Yes Status: Acute (5) Subacute osteomyelitis of right hand Current Visit: Yes Status: Acute - Time Spent with Patient Total time spent is greater than 50% in coordination of care (as documented) at patient's floor/unit and/or counseling patient: Internal Medicine: Result - Labs CBC & Chem 7: 02/20/19 08:19 02/26/19 11:35 Labs: BMP 02/26/19 11:35 BUN 19 Creatinine 0.91 - ABG Interpretation ABG results: PT/INR, D-dimer PT 11.6 Seconds (9.4-12.1) 02/16/19 17:24 - Attending Attestation I examined this patient and my medical decision-making was reviewed with the Resident Physician Dr Green. I agree with the documented findings, disposition and treatment plan as described except to the extent set forth below. Mr Reyes is admitted with septic finger joint and osteo s/p amputation awake, no fevers or chills. itching at incision, no redness, drainage or bleeding. requesting his home remeron and celexa be resumed. gen- alert, awake,appears stated age cv- reg rate and rhythm lungs- ctabl, normal resp effort skin- finger incision site clean and dry without drainage, no erythema, stiches in place neuro- AAOx3 R hand Osteomyelitis and septic joint s/p partial finger amputation -ID following, cont IV Vanc + rocephin -fu with Dr Roman outpt upon dc -awaiting snf placement Mood disorder- cont home remeron and celexa Hep C- will refer to [facility] upon dc for follow up and treatment options further diagnoses and plan as noted by resident <Karan Green - Last Filed: 02/26/19 09:48> (2) Depression Qualifiers: Depression Type: major depressive disorder <Elenita Boss - Last Filed: 02/26/19 12:28> (1) Depression Qualifiers: Depression Type: major depressive disorder
[2019-02-26] MEDS ORDERED: Ondansetron ODT 4 MG TAB.RAPDIS SL PRN (11:14)
[2019-02-26 12:18] LABS: BUN/Creatinine Ratio 21 (6-26); Blood Urea Nitrogen 19 mg/dL (6-20); eGFR For Non-African Americans > 60 (> 60)
--- NOTE | 2019-02-26 13:24 | Infectious Disease Progress No ---
ID Progress Note Date of Encounter: 02/26/19 Time of Encounter: 09:50 - Subjective Subjective: Patient seen and examined. No acute events noted overnight. The patient states overall he feels well, but is tired. Complains of some soreness to the surgical site, 5/10 currently. Denies fevers, chills, or rigors. Denies chest pain, shortness of breath, or cough. Reports some intermittent nausea, but denies vomiting. Denies abdominal pain. Reports some difficulty starting his urine stream which is chronic for him. Denies dysuria or frequency or hematuria. Denies back or extremity pain. Denies oral thrush or new skin lesions. - Objective CBC & Chem 7: 02/27/19 09:55 02/27/19 09:55 - Exam Vitals: Temp Pulse Resp BP Pulse Ox 98.4 F 100 16 129/77 100 02/26/19 11:32 02/26/19 11:32 02/26/19 11:32 02/26/19 11:32 02/26/19 11:32 Exam: Head: Atraumatic, normal inspection, normocephalic. Eye: EOMI, PERRLA, no scleral icterus noted. ENT: Mucous membranes moist. No odontogenic infection noted. Neck: Normal inspection, no meningismus. Respiratory: Clear to auscultation. No rales, respiratory distress, rhonchi, or wheezes noted. Cardiovascular: Regular rate and rhythm, S1 and S2 audible. No murmurs, rubs, or gallops. GI: Soft, nondistended, normal bowel sounds. Extremities:No joint swelling, pedal edema, or tenderness noted. Right hand third digit surgical site with sutures intact and wound edges well-approximated. No erythema, warmth, drainage. Mild pain noted with palpation or ROM. Back: Normal inspection. No vertebral tenderness noted. Neurological: Alert, oriented 3, no focal deficits. Psychiatric: normal affect, normal mood. Skin: Dry, intact, warm. Normal color. No rashes. - Assessment and Plan (1) Subacute osteomyelitis of right hand Current Visit: Yes Status: Acute Location: Right hand third finger. Causative organism: Unclear. Likely secondary to traumatic injury back in December. Status post I&D and I&D 01/24/[address] Roman. Pathology was positive for osteomyelitis, but the cultures were negative. The patient signed out AMA and was discharged with a 10 day course of oral Bactrim. X-ray of the right hand 02/16/19 showed persistent findings concerning for septic arthritis and osteo-mellitus of the right hand third digit. Orthopedics consult. Status post right long finger amputation through the middle phalanx 02/19/[address] Cotton. Intraoperative cultures are negative. Discussed Intra-Op findings with Dr. Roman who tells me that he only took when he absolutely had to since the patient wanted to keep as much of his finger as possible. He states he went just proximal to where the bone did not appear infected to perform the amputation. Preop ESR 4, CRP less than 5. Treated with vancomycin and Zosyn preop. Currently on IV Vanc and Rocephin. SNOMED Code(s): 84654140 (2) Acute kidney injury Current Visit: Yes Status: Resolved Etiology: Unclear. Resolved. Lab error vs. other? Dose adjust antibiotics and avoid nephrotoxins. SNOMED Code(s): 92145988 (3) Hypocalcemia Current Visit: Yes Status: Resolved Replacement per the primary team. SNOMED Code(s): 2723409 (4) Hypokalemia Current Visit: Yes Status: Resolved Replacement per the primary team. SNOMED Code(s): 09925643 (5) Hepatitis C Current Visit: Yes Status: Acute Known hep C positive. States he contracted hep C from [employer] tattoos. Treatment naive. Consider referral to as an outpatient for treatment. Qualifiers: Viral hepatitis chronicity: chronic Hepatic coma status: without hepatic coma Qualified Code(s): B18.2 - Chronic viral hepatitis C SNOMED Code(s): 35000883 - Recommendations Recommendations: Wound care and activity per the orthopedics team. Continue vancomycin IV. Pharmacy to dose. Goal trough proximally 15. Continue Rocephin 2 grams IV daily. Duration of treatment depends on the clinical picture. Given that orthopedics was unable to remove the entire digit at the request of the patient, we would like to pursue 6 weeks of IV antibiotics to ensure that we aggressively treat this infection. I did discuss the patient's history of drug use with him. He is very open and honest with me about the use of his marijuana on a daily basis, but adamantly declines the use of IV drugs now or in the past. manager clinical services to assist with discharge planning. VAT consult for PICC placement prior to discharge. Will need weekly CBC, BUN/Cr, ESR, CRP, Vanc trough. Will need weekly PICC care per protocol. Follow up with ID 03/13/19 at 1345. Consult Discharge Plan - Plan Referrals: Jillian Leo CNP [Advanced Practice Nurse] - 03/13/19 1:45 pm Andrew Brown CNP [Primary Care Provider] - 03/04/19 8:30 am Camacho Roman MD [Partnered Physician] - 03/06/19 (hospital follow up ) Kailey Newberry MD [Partnered Physician] - (Hep C follow up with GI team) Prescriptions: OXYCODONE Oral CONC [Oxycodone Oral Conc] 5 mg SL Q8HR PRN 1 Days #3 oral.syg PRN Reason: Pain cefTRIAXone [Rocephin] 2,000 mg IVPB DAILY 27 Days #27 vial Vancomycin [Vancocin] 1,250 mg IV Q8H 27 Days #162 vial - Attending Attestation I have personally performed a face to face evaluation on this patient. I have reviewed and agree with the care plan. History and Exam by me shows: Assessment and plan: 1.Subacute osteomyelitis of the right hand causative organism unknown status post I&D by Dr. Cotton 01/24/2019 patient signed out AMA status post amputation through the middle phalanx 02/19/2019 Intra-Op cultures are negative to date. 2.Acute kidney injury 3.Hepatitis C 4.multiple psychiatric issues Recommendations: Continue Rocephin 2 grams IV daily. Duration of treatment depends on the clinical picture. Given that orthopedics w as unable to remove the entire digit at the request of the patient, we would like to pursue 6 weeks of IV antibiotics to ensure that we aggressively treat this infection. I did discuss the patient's history of drug use with him. He is very open and honest with me about the use of his marijuana on a daily basis, but adamantly declines the use of IV drugs now or in the past. manager clinical services to assist with discharge planning. VAT consult for PICC placement prior to discharge. Will need weekly CBC, BUN/Cr, ESR, CRP, Vanc trough. Will need weekly PICC care per protocol. Follow up with ID 03/13/19 at 1345.
[2019-02-26] MEDS: cefTRIAXone 2,000 MG in Water for inj. (sterile) 20 ML 20 ML IVP SCH (16:32)
[2019-02-26] MEDS: Acetaminophen 325 MG TABLET PO PRN (17:04)
[2019-02-26] MEDS: Mirtazapine 15 MG TABLET PO SCH (20:56)
[2019-02-26] MEDS: Melatonin 3 MG TABLET PO SCH (20:56)
[2019-02-27] MEDS: OXYCODONE Oral CONC 10 MG/0.5 ML ORAL.SYG SL PRN ×3 (05:39→22:57)
[2019-02-27] MEDS: *HR* Heparin 5,000 UNIT/ML VIAL SQ SCH ×2 (05:40→15:53)
[2019-02-27] MEDS: Ziprasidone 20 MG CAPSULE PO SCH ×2 (07:54→15:45)
--- NOTE | 2019-02-27 08:36 | Orthopedics Progress Note ---
Date of Encounter: 02/27/19 Time of Encounter: 08:30 - Assessment and Plan (1) Subacute osteomyelitis of right hand Current Visit: Yes Status: Acute Subjective Interval history: S: No new complaints. Pain controlled. O: AFVSS Wound healing well No redness No drainage NV intact A: Post amputation of the right long finger tip P: Orthopedically stable Follow up next week for stitch removal Abx per ID. Objective Vital signs: Vital Signs Temp Pulse Resp BP Pulse Ox 02/27/19 06:38 97.6 F 93 14 126/91 100 02/27/19 03:43 98.0 F 86 17 103/72 98 02/26/19 18:58 99.1 F 98 17 107/65 98 02/26/19 15:53 101 F H 121 18 124/85 97 02/26/19 11:32 98.4 F 100 16 129/77 100 Intake and Output 02/26/19 02/27/19 02/27/19 23:59 07:59 15:59 Intake Total 640 / 1370 250 / 250 Output Total 200 / 800 250 / 250 Balance 440 / 570 0 / 0 Intake: IV Fluids 520 / 770 250 / 250 Rocephin 2,000 MG In Water for 20 / 20 inj. (sterile) 20 ML @ 600 mls/ hr IVP Q24H [facility] Rx#:[id number] Vancocin 1,250 MG In 0.9 % 500 / 750 250 / 250 Sodium Chloride 250 ML @ 166.67 mls/hr IVPB Q8H [facility] Rx#: [id number] Oral 120 / 600 Output: Urine 200 / 800 250 / 250 Other: Weight 69.6 kg Patient Weight 02/27/19 23:59 Weight 69.6 kg - Labs CBC & BMP: 02/20/19 08:19 02/26/19 11:35 Labs: Abnormal lab results RBC 4.01 M/mcL (4.19-5.50) L 02/19/19 06:13 Hgb 12.3 g/dL (12.9-16.9) L 02/19/19 06:13 Hct 36.7 % (37.5-50.1) L 02/19/19 06:13 1.5 K/mcL (1.6-8.9) L 02/19/19 06:13 Potassium 2.4 mEq/L (3.5-5.1) L* 02/16/19 17:24 Chloride 109 mEq/L (98-107) H 02/18/19 05:09 Carbon Dioxide 30 mEq/L (23-29) H 02/19/19 06:13 BUN 22 mg/dL (6-20) H 02/24/19 01:03 1.43 mg/dL (0.70-1.30) H 02/24/19 01:03 Est GFR (Non-Af Amer) 56 (> 60) L 02/24/19 01:03 Glucose 118 mg/dL (70-105) H 02/23/19 04:03 Calcium 8.5 mg/dL (8.6-10.3) L 02/18/19 05:09 Phosphorus 1.4 mg/dL (2.7-4.5) L 02/16/19 17:24 Magnesium 1.5 mg/dL (1.6-2.6) L 02/17/19 06:24 5.1 g/dL (6.4-8.9) L 02/17/19 06:24 3.1 g/dL (3.5-5.7) L 02/17/19 06:24 2.0 g/dL (2.4-3.5) L 02/17/19 06:24 Vancomycin Trough 15 mcg/mL (5-10) H 02/26/19 03:02 U Marijuana (THC) Screen Positive ng/mL (Cutoff = 50) H 02/17/19 14:45 Consult Discharge Plan - Plan Referrals: Jillian Leo CNP [Advanced Practice Nurse] - 03/13/19 1:45 pm Andrew Brown CNP [Primary Care Provider] - 03/04/19 8:30 am
--- NOTE | 2019-02-27 09:06 | Discharge Summary ---
<Karan Green - Last Filed: 02/27/19 10:56> Orders not resulted at time of discharge: Pending orders 02/17/19 06:00 ECG 12 lead ECG [ECG] AM 0600 02/27/19 08:37 Basic Metabolic Panel Routine CRP [C-Reactive Protein] Routine Complete Blood Count [HEME] Routine Erythrocyte Sedimentation Rate [HEME] Routine 02/27/19 10:00 Vancomycin,Trough Timed Date of Encounter: 02/27/19 Time of Encounter: 08:57 - Discharge Diagnosis (1) Subacute osteomyelitis of right hand Priority: Primary Status: Acute (2) Depression Priority: Secondary Status: Acute Qualifiers: Depression Type: major depressive disorder Major depression recurrence: unspecified whether recurrent Active/Remission status: remission status unspecified Qualified Code(s): F32.9 - Major depressive disorder, single episode, unspecified (3) DVT prophylaxis Priority: Secondary Status: Acute Hospital course: Mr. Reyes is a 33 year old male presented with chief complaint of worsening pain and swelling and discomfort in his right third digit. Patient had left AGAINST MEDICAL ADVICE one week before admission on 02/16/19 for right third digit osteomyelitis. Right hand x-ray shows persistent soft tissue thickening involving the distal third digit with cortical destructive changes involving the third DIP joint. Orthopedic surgery was consulted and patient underwent right long finger amputation through the middle phalanx. He did not have any complications from the surgery. Thereafter surgery recommended patient will need IV antibiotics as orthopedic surgery did not remove the entire digit and patient will need aggressive antibiotic therapy for osteomyelitis. Infectious diseases consulted and recommended 6 weeks of vancomycin and ceftriaxone. Patient will receive oxycodone sublingual for pain medicine. He also has a history of depression and is on Geodon, mirtazapine and Celexa. He will be discharged to [facility] for IV antibiotics. He will follow-up with orthopedic surgery in 1 week after discharge for removal of sutures. He will have weekly CBC, BUN/creatinine, ESR, CRP and vancomycin trough. He will follow-up with infectious disease 2 weeks after discharge. Discharge discussed with: patient, family, social work - Time Spent with Patient Total time spent providing and/or coordinating discharge services: - Discharge Medications Prescriptions: New Melatonin 3 mg PO HS tablet OXYCODONE Oral CONC [Oxycodone Oral Conc] 5 mg SL Q8HR PRN 1 Days #3 oral.syg PRN Reason: Pain Mirtazapine [Remeron] 15 mg PO HS tablet cefTRIAXone [Rocephin] 2,000 mg IVPB DAILY 27 Days #27 vial Vancomycin [Vancocin] 1,250 mg IV Q8H 27 Days #162 vial Continued Citalopram [CeleXA] 20 mg PO HS Ziprasidone HCl [Geodon] 40 mg PO BIDWM Home Medications: Citalopram [CeleXA] 20 mg PO HS 02/16/19 [History] Ziprasidone HCl [Geodon] 40 mg PO BIDWM 02/16/19 [History] Melatonin 3 mg PO HS tablet 02/27/19 [Rx] Mirtazapine [Remeron] 15 mg PO HS tablet 02/27/19 [Rx] OXYCODONE Oral CONC [Oxycodone Oral Conc] 5 mg SL Q8HR PRN 1 Days #3 oral.syg 02/27/19 [Rx] Vancomycin [Vancocin] 1,250 mg IV Q8H 27 Days #162 vial 02/27/19 [Rx] cefTRIAXone [Rocephin] 2,000 mg IVPB DAILY 27 Days #27 vial 02/27/19 [Rx] Allergies/Adverse Reactions: Allergy/AdvReac Type Severity Reaction Status Date / Time aspirin Allergy Difficulty Verified 02/16/19 21:39 Breathing Date of admission: 02/17/19 11:11 Primary care physician: Andrew Brown CNP Consults: 02/16/19 19:59 Consult to Physician [CONS] Routine Consulting Provider: Camacho Roman Reason for Consult: right 3rd DIP osteo/septic joint; spoke with Dr. Springer, told to consult Dr. Roman Time Notified: 19:59 Call Completed: Yes 02/17/19 14:02 Consult to Nutrition [CONS] Routine Comment: Consulting Provider: NUTRITION Reason for Dietary Consult: Diet Education 02/24/19 07:26 Consult to Infectious Diseases [CONS] Routine Consulting Provider: Infectious Disease Berkley Reason for Consult: infection Call Completed: No 02/24/19 08:42 Consult to Occupational Therapy [CONS] Routine Comment: Evaluate, develop and implement POC Reason for Consult: Active and passive ROM to the right residual long finger. Does patient have active BEDREST order?: No Is patient medically & hemodynamically stable?: Yes 02/25/19 15:35 Consult to Copper Plate [employer]inter [CONS] Routine Reason for SW Consult: PLACEMENT TO SNF FOR 4-6 WEEKS OF IV ATB 02/27/19 07:56 Consult to PICC team [Consult to Invasive Line Access Team] [CONS] Routine Reason for Consult: longterm atb at snf Line Type: PICC Discharging clinician: Karan Green Anticipated date of discharge: 02/27/19 - Constitutional Vitals: Temp Pulse Resp BP Pulse Ox 97.6 F 93 14 126/91 100 02/27/19 06:38 02/27/19 06:38 02/27/19 06:38 02/27/19 06:38 02/27/19 06:38 General appearance: Present: cooperative, mild distress, A&O X 3, pleasant, answers questions appropriately Exam: General: pleasant, without distress Cardiovascualr: Regular rate and rhythm with no murmur, absent gallops or rubs, absent pedal edema, radial pulses 2 out of 4 Lungs: Clear to auscultation bilaterally, not in respiratory distress Abdomen: Soft nontender, nondistended positive bowel sounds, absent hepatomegaly Skin: warm and dry, absent rash, absent open wounds and nodules MSK: Right third digit without drainage or erythema Neuro: Alert oriented 3 Psych: good insight and judgment - Patient Status Disposition: Transfer SNF Condition: Good Functional capacity at discharge: independent ambulation Overall status at discharge: patient is progressing back to baseline - Discharge Instructions Follow Up With: Jillian Leo CNP [Advanced Practice Nurse] - 03/13/19 1:45 pm Andrew Brown CNP [Primary Care Provider] - 03/04/19 8:30 am Camacho Roman MD [Partnered Physician] - 03/06/19 (hospital follow up ) Kailey Newberry MD [Partnered Physician] - (Hep C follow up with GI team) - Diet and Activity Activity: increase activity as tolerated Diet: advance to your usual diet <Elenita Boss - Last Filed: 02/27/19 12:23> Orders not resulted at time of discharge: Pending orders 02/17/19 06:00 ECG 12 lead ECG [ECG] AM 0600 Date of Encounter: 02/27/19 - Discharge Diagnosis (1) Depression Status: Acute Qualifiers: Depression Type: major depressive disorder Major depression recurrence: unspecified whether recurrent Active/Remission status: remission status unspecified Qualified Code(s): F32.9 - Major depressive disorder, single episode, unspecified (2) Hypokalemia Status: Resolved (3) Hypocalcemia Status: Resolved (4) DVT prophylaxis Status: Acute (5) Subacute osteomyelitis of right hand Status: Acute Hospital course: Mr. Reyes is a 33 year old male - Time Spent with Patient Total time spent providing and/or coordinating discharge services: Time spent: Greater than 30 minutes (35 min) Date of admission: 02/17/19 11:11 Primary care physician: Andrew Brown CNP Consults: 02/16/19 19:59 Consult to Physician [CONS] Routine Consulting Provider: Camacho Roman Reason for Consult: right 3rd DIP osteo/septic joint; spoke with Dr. Springer, told to consult Dr. Roman Time Notified: 19:59 Call Completed: Yes 02/17/19 14:02 Consult to Nutrition [CONS] Routine Comment: Consulting Provider: NUTRITION Reason for Dietary Consult: Diet Education 02/24/19 07:26 Consult to Infectious Diseases [CONS] Routine Consulting Provider: Infectious Disease Berkley Reason for Consult: infection Call Completed: No 02/24/19 08:42 Consult to Occupational Therapy [CONS] Routine Comment: Evaluate, develop and implement POC Reason for Consult: Active and passive ROM to the right residual long finger. Does patient have active BEDREST order?: No Is patient medically & hemodynamically stable?: Yes 02/25/19 15:35 Consult to Copper Plate Printer [CONS] Routine Reason for SW Consult: PLACEMENT TO SNF FOR 4-6 WEEKS OF IV ATB 02/27/19 07:56 Consult to PICC team [Consult to Invasive Line Access Team] [CONS] Routine Reason for Consult: longterm atb at snf Line Type: PICC - Constitutional Vitals: Temp Pulse Resp BP Pulse Ox 98.2 F 92 14 122/72 98 02/27/19 11:07 02/27/19 11:07 02/27/19 11:07 02/27/19 11:07 02/27/19 11:07 - Attending Attestation I examined this patient and my medical decision-making was reviewed with the Resident Physician Dr Green. I agree with the documented findings, disposition and treatment plan as described except to the extent set forth below. Mr Reyes is admitted with septic finger joint and osteo s/p amputation. He requires 6 weeks of toatl abx for treatment and outpt fu with ID and Surgeon. He remains medically stable and will dc to snf for IV abx. awake, denies any fevers or chills. Had one time recorded temp 101 5/1 in the afternoon. Pt denies any s/s of infection. Only complaint is that he remains in the hospital. Denies any skin changes, warmth or drainage from finger. eating and drinking without difficulty. discussed dc plan and he has no questions. gen- alert, awake,appears stated age cv- reg rate and rhythm lungs- ctabl, normal resp effort on room air skin- finger incision site clean and dry no drainage, no erythema, sutures in place neuro- AAOx3 R hand Osteomyelitis and septic joint s/p partial finger amputation -ID following, cont IV Vanc + rocephin for 6 weeks total -one time recording of temp 101 yesterday, no leukocytosis on morning labs, pt denies symptoms, no other elevated temps, all cxs are finalized--given no elevated temps today question if this was accurate- remains stable for dc to snf -fu with Dr Roman and ID as scheduled -awaiting snf placement Mood disorder- cont home inge landeros and celexa Hep C- will refer to GI outpt upon dc for follow up and treatment options further diagnoses and plan as noted by resident time spent on dc 35 min
--- NOTE | 2019-02-27 09:12 | Physician Discharge Referral ---
<Karan Green - Last Filed: 02/27/19 11:02> ExtendedCare Referral Info Transfer To: [facility] Provider in Charge: Karyn Provider in Charge after Transfer: PCP Institutional Level of Care: Skilled - Diagnosis (1) Subacute osteomyelitis of right hand Priority: Primary Status: Acute (2) Depression Priority: Secondary Status: Acute (3) DVT prophylaxis Priority: Secondary Status: Acute Prognosis: Fair Aware of Diagnosis: Patient - Transfer Medications Prescriptions: OXYCODONE Oral CONC [Oxycodone Oral Conc] 5 mg SL Q8HR PRN 1 Days #3 oral.syg PRN Reason: Pain cefTRIAXone [Rocephin] 2,000 mg IVPB DAILY 27 Days #27 vial Vancomycin [Vancocin] 1,250 mg IV Q8H 27 Days #162 vial Home Medications: Citalopram [CeleXA] 20 mg PO HS 02/16/19 [History] Ziprasidone HCl [Geodon] 40 mg PO BIDWM 02/16/19 [History] Melatonin 3 mg PO HS tablet 02/27/19 [Rx] Mirtazapine [Remeron] 15 mg PO HS tablet 02/27/19 [Rx] OXYCODONE Oral CONC [Oxycodone Oral Conc] 5 mg SL Q8HR PRN 1 Days #3 oral.syg 02/27/19 [Rx] Vancomycin [Vancocin] 1,250 mg IV Q8H 27 Days #162 vial 02/27/19 [Rx] cefTRIAXone [Rocephin] 2,000 mg IVPB DAILY 27 Days #27 vial 02/27/19 [Rx] Allergies/Adverse Reactions: Allergy/AdvReac Type Severity Reaction Status Date / Time aspirin Allergy Difficulty Verified 02/16/19 21:39 Breathing - Respiratory Orders None Smoking Cessation: Smoking cessation has been advised. For more information, call the [place] Tobacco Quit Line at 7-711-ENNT-NOW. - Lab Orders Lab Orders: CBC (weekly for 6 weeks), Other (include drug levels w/frequency) (Also needs weekly: Bun/Scr, ESR, CRP, vancomycin trough with goal of 15.) - Advance Directives Code Status: Full Code - Mobility Orders Ambulate - Diet Orders Regular CERTIFICATION: I certify that the transfer of the above named patient to an Extended Care Facility is necessary for the continuing treatment of the diagnosis listed. The above information is true and accurate reflection of patient's current condition. Confidential - Redisclosure prohibited without a patient's written consent. <Elenita Boss - Last Filed: 02/27/19 12:23> - Diagnosis (1) Depression Status: Acute (2) Hypokalemia Status: Resolved (3) Hypocalcemia Status: Resolved (4) DVT prophylaxis Status: Acute (5) Subacute osteomyelitis of right hand Status: Acute - Respiratory Orders Smoking Cessation: Smoking cessation has been advised. For more information, call the [employer] Tobacco Quit Line at 8-473-TGYX-NOW. - Lab Orders Lab Orders: Other (include drug levels w/frequency) CERTIFICATION: I certify that the transfer of the above named patient to an Extended Care Facility is necessary for the continuing treatment of the diagnosis listed. The above information is true and accurate reflection of patient's current condition. Confidential - Redisclosure prohibited without a patient's written consent.
[2019-02-27 10:13] LABS: Basophils % 0.6 %; Eosinophils # 0.3 K/mcL (0.0-0.6); Eosinophils % 4.1 %; Hematocrit 39.8 % (37.5-50.1); Hemoglobin 13.2 g/dL (12.9-16.9); Immature Granulocytes % 0.3 % (0-4); Lymphocytes # 1.9 K/mcL (0.6-4.6); Lymphocytes % 27.4 %; Mean Corpuscular HGB Conc 33.2 g/dL (31.6-35.5); Mean Corpuscular Hemoglobin 30.3 pg (28.0-33.3); Mean Corpuscular Volume 91.3 fL (83.0-100.0); Mean Platelet Volume 9.8 fL (9.4-12.4); Monocytes # 0.8 K/mcL (0.0-1.3); Monocytes % 11.7 %; Neutrophils # 3.8 K/mcL (1.6-8.9); Platelet Count 154 K/mcL (140-400); Red Blood Count 4.36 M/mcL (4.19-5.50); Red Cell Distribution Width 12.8 % (11.5-14.5); Segmented Neutrophils % 55.9 %
[2019-02-27 10:27] LABS: BUN/Creatinine Ratio 18 (6-26); Blood Urea Nitrogen 14 mg/dL (6-20); C-Reactive Protein 20 mg/L (Less than 10); Calcium 9.4 mg/dL (8.6-10.3); Carbon Dioxide 29 mEq/L (23-29); Chloride 104 mEq/L (98-107); Glucose 113 mg/dL (70-105); Osmolality,Calculated 285 (280-300); Potassium 4.1 mEq/L (3.5-5.1); Sodium 137 mEq/L (136-145); eGFR For Non-African Americans > 60 (> 60)
--- NOTE | 2019-02-27 10:52 | Infectious Disease Progress No ---
ID Progress Note Date of Encounter: 02/27/19 Time of Encounter: 09:50 - Subjective Subjective: Patient seen and examined. No acute events noted overnight. The patient states overall he feels well, but is tired, although he did get 6 hours of sleep overnight. Complains of some soreness to the surgical site, 5/10 currently. Denies fevers, chills, or rigors. Denies chest pain, shortness of breath, or cough. Reports some intermittent nausea, but denies vomiting. Denies abdominal pain. Reports some difficulty starting his urine stream which is chronic for him. Denies dysuria or frequency or hematuria. Denies back or extremity pain. Denies oral thrush or new skin lesions. - Objective CBC & Chem 7: 02/27/19 09:55 02/27/19 09:55 - Exam Vitals: Temp Pulse Resp BP Pulse Ox 97.6 F 93 14 126/91 100 02/27/19 06:38 02/27/19 06:38 02/27/19 06:38 02/27/19 06:38 02/27/19 06:38 Exam: Head: Atraumatic, normal inspection, normocephalic. Eye: EOMI, PERRLA, no scleral icterus noted. ENT: Mucous membranes moist. No odontogenic infection noted. Neck: Normal inspection, no meningismus. Respiratory: Clear to auscultation. No rales, respiratory distress, rhonchi, or wheezes noted. Cardiovascular: Regular rate and rhythm, S1 and S2 audible. No murmurs, rubs, or gallops. GI: Soft, nondistended, normal bowel sounds. Extremities:No joint swelling, pedal edema, or tenderness noted. Right hand third digit surgical site with sutures intact and wound edges well-approximated. No erythema, warmth, drainage. Mild pain noted with palpation or ROM. Back: Normal inspection. No vertebral tenderness noted. Neurological: Alert, oriented 3, no focal deficits. Psychiatric: normal affect, normal mood. Skin: Dry, intact, warm. Normal color. No rashes. - Assessment and Plan (1) Subacute osteomyelitis of right hand Current Visit: Yes Status: Acute Location: Right hand third finger. Causative organism: Unclear. Likely secondary to traumatic injury back in December. Status post I&D and I&D 01/24/[address] Roman. Pathology was positive for osteomyelitis, but the cultures were negative. The patient signed out AMA and was discharged with a 10 day course of oral Bactrim. X-ray of the right hand 02/16/19 showed persistent findings concerning for septic arthritis and osteo-mellitus of the right hand third digit. Orthopedics consult. Status post right long finger amputation through the middle phalanx 02/19/[address] Cotton. Intraoperative cultures are negative. Discussed Intra-Op findings with Dr. Roman who tells me that he only took when he absolutely had to since the patient wanted to keep as much of his finger as possible. He states he went just proximal to where the bone did not appear infected to perform the amputation. Preop ESR 4, CRP less than 5. Treated with vancomycin and Zosyn preop. Repeat ESR 6, CRP 20. Currently on IV Vanc and Rocephin. SNOMED Code(s): 11077499 (2) Acute kidney injury Current Visit: Yes Status: Resolved Etiology: Unclear. Resolved. Lab error vs. other? Dose adjust antibiotics and avoid nephrotoxins. SNOMED Code(s): 90947094, 91112236 (3) Hypocalcemia Current Visit: Yes Status: Resolved Replacement per the primary team. SNOMED Code(s): 0251174 (4) Hypokalemia Current Visit: Yes Status: Resolved Replacement per the primary team. SNOMED Code(s): 71388867 (5) Hepatitis C Current Visit: Yes Status: Acute Known hep C positive. States he contracted hep C from [facility]. Treatment naive. Consider referral to as an outpatient for treatment. Qualifiers: Viral hepatitis chronicity: chronic Hepatic coma status: without hepatic coma Qualified Code(s): B18.2 - Chronic viral hepatitis C SNOMED Code(s): 32311619 - Recommendations Recommendations: Check CBC, BMP, ESR, and CRP. Wound care and activity per the orthopedics team. Continue vancomycin IV. Pharmacy to dose. Goal trough proximally 15. Continue Rocephin 2 grams IV daily. Duration of treatment depends on the clinical picture. Given that orthopedics was unable to remove the entire digit at the request of the patient, we would like to pursue 6 weeks of IV antibiotics to ensure that we aggressively treat this infection. I did discuss the patient's history of drug use with him. He is very open and honest with me about the use of his marijuana on a daily basis, but adamantly declines the use of IV drugs now or in the past. program services assistant to assist with discharge planning. VAT consult for PICC placement prior to discharge. Will need weekly CBC, BUN/Cr, ESR, CRP, Vanc trough. Will need weekly PICC care per protocol. Follow up with ID 03/13/19 at 1345. Consult Discharge Plan - Plan Referrals: Jillian Leo CNP [Advanced Practice Nurse] - 03/13/19 1:45 pm Andrew Brown CNP [Primary Care Provider] - 03/04/19 8:30 am Camacho Roman MD [Partnered Physician] - 03/06/19 (hospital follow up ) Kailey Newberry MD [Partnered Physician] - (Hep C follow up with GI team) Prescriptions: cefTRIAXone [Rocephin] 2,000 mg IVPB DAILY 27 Days #27 vial Vancomycin [Vancocin] 1,250 mg IV Q8H 27 Days #162 vial - Attending Attestation I have personally performed a face to face evaluation on this patient. I have reviewed and agree with the care plan. History and Exam by me shows: Assessment and plan: 1.Subacute osteomyelitis of the right hand causative organism unknown status post I&D by Dr. Cotton 01/24/2019 patient signed out AMA status post amputation through the middle phalanx 02/19/2019 Intra-Op cultures are negative to date. 2.Acute kidney injury 3.Hepatitis C 4.multiple psychiatric issues Recommendations: Continue Rocephin Continue vancomycin Duration of treatment likely 6 weeks Weekly CBC, BMP, ESR, CRP and vancomycin trough Follow-up with us in clinic in 2 weeks
[2019-02-27] MEDS: Acetaminophen 325 MG TABLET PO PRN (15:44)
[2019-02-27] MEDS: cefTRIAXone 2,000 MG in Water for inj. (sterile) 20 ML 20 ML IVP SCH (15:46)
[2019-02-27] MEDS: Mirtazapine 15 MG TABLET PO SCH (20:01)
[2019-02-27] MEDS: Melatonin 3 MG TABLET PO SCH (20:01)
[2019-02-28] MEDS: *HR* Heparin 5,000 UNIT/ML VIAL SQ SCH (04:47)
[2019-02-28] MEDS: OXYCODONE Oral CONC 10 MG/0.5 ML ORAL.SYG SL PRN (08:04)
[2019-02-28] MEDS: Ziprasidone 20 MG CAPSULE PO SCH (08:04)
--- NOTE | 2019-02-28 09:34 | Internal Med Progress Note ---
<Karan Green - Last Filed: 02/28/19 09:32> Hospitalist Progress Note - Encounter Date of Encounter: 02/28/19 Time of Encounter: 09:32 - Subjective Interval History: No acute events overnight. Patient awaiting placement. - Exam Vitals: Temp Pulse Resp BP Pulse Ox 98.2 F 64 16 128/84 99 02/28/19 07:08 02/28/19 07:08 02/28/19 07:08 02/28/19 07:08 02/28/19 07:08 Exam: General: pleasant, without distress Cardiovascualr: Regular rate and rhythm with no murmur, absent gallops or rubs, absent pedal edema, radial pulses 2 out of 4 Lungs: Clear to auscultation bilaterally, not in respiratory distress Abdomen: Soft nontender, nondistended positive bowel sounds, absent hepatomegaly Skin: warm and dry, absent rash, absent open wounds and nodules MSK: Right third digit without drainage or erythema Neuro: Alert oriented 3 Psych: good insight and judgment - Assessment and Plan (1) Subacute osteomyelitis of right hand Current Visit: Yes Status: Acute Assessment and Plan: Patient will need up to 4-6 weeks of IV antibiotics vancomycin, cefepime, Flagyl. PICC line placed. He will need weekly CBC, BUN/creatinine, ESR, CRP, living trough. He will follow-up with infectious disease 2 weeks after disc harge. Awaiting placement (2) Depression Current Visit: Yes Status: Acute Assessment and Plan: Continue Geodon, mirtazapine, Celexa (3) DVT prophylaxis Current Visit: Yes Status: Acute Assessment and Plan: Heparin subcutaneous - Time Spent with Patient Total time spent is greater than 50% in coordination of care (as documented) at patient's floor/unit and/or counseling patient: Internal Medicine: Result - Labs CBC & Chem 7: 02/27/19 09:55 02/27/19 09:55 Labs: Short CBC 02/27/19 Range/Units 09:55 WBC 6.8 (4.3-11.1) K/mcL Hgb 13.2 (12.9-16.9) g/dL Hct 39.8 (37.5-50.1) % Plt Count 154 (140-400) K/mcL Neutrophils # 3.8 (1.6-8.9) K/mcL BMP 02/27/19 09:55 Sodium 137 Potassium 4.1 Chloride 104 Carbon Dioxide 29 BUN 14 Creatinine 0.80 Glucose 113 H Calcium 9.4 - ABG Interpretation ABG results: PT/INR, D-dimer PT 11.6 Seconds (9.4-12.1) 02/16/19 17:24 Consult Discharge Plan - Plan Referrals: Jillian Leo CNP [Advanced Practice Nurse] - 03/13/19 1:45 pm Andrew Brown CNP [Primary Care Provider] - 03/04/19 8:30 am Camacho Roman MD [Partnered Physician] - 03/06/19 (hospital follow up ) Kailey Newberry MD [Partnered Physician] - (Hep C follow up with GI team) Prescriptions: cefTRIAXone [Rocephin] 2,000 mg IVPB DAILY 27 Days #27 vial Vancomycin [Vancocin] 1,250 mg IV Q8H 27 Days #162 vial <Elenita Boss - Last Filed: 02/28/19 09:48> Hospitalist Progress Note - Encounter Date of Encounter: 02/28/19 - Exam Vitals: Temp Pulse Resp BP Pulse Ox 98.2 F 64 16 128/84 99 02/28/19 07:08 02/28/19 07:08 02/28/19 07:08 02/28/19 07:08 02/28/19 07:08 - Assessment and Plan (1) Depression Current Visit: Yes Status: Acute (2) Hypokalemia Current Visit: Yes Status: Resolved (3) Hypocalcemia Current Visit: Yes Status: Resolved (4) DVT prophylaxis Current Visit: Yes Status: Acute (5) Subacute osteomyelitis of right hand Current Visit: Yes Status: Acute - Time Spent with Patient Total time spent is greater than 50% in coordination of care (as documented) at patient's floor/unit and/or counseling patient: Internal Medicine: Result - Labs CBC & Chem 7: 02/27/19 09:55 02/27/19 09:55 Labs: Short CBC 02/27/19 Range/Units 09:55 WBC 6.8 (4.3-11.1) K/mcL Hgb 13.2 (12.9-16.9) g/dL Hct 39.8 (37.5-50.1) % Plt Count 154 (140-400) K/mcL Neutrophils # 3.8 (1.6-8.9) K/mcL BMP 02/27/19 09:55 Sodium 137 Potassium 4.1 Chloride 104 Carbon Dioxide 29 BUN 14 Creatinine 0.80 Glucose 113 H Calcium 9.4 - ABG Interpretation ABG results: PT/INR, D-dimer PT 11.6 Seconds (9.4-12.1) 02/16/19 17:24 - Attending Attestation I examined this patient and my medical decision-making was reviewed with the Resident Physician Dr Green. I agree with the documented findings, disposition and treatment plan as described except to the extent set forth below. Mr Reyes is admitted with septic finger joint and osteo s/p amputation. He requires 6 weeks of toatl abx for treatment and outpt fu with ID and Surgeon. He remains medically stable and will dc to snf for IV abx. awake, pleasant, taking walk in dang. no fevers or chills. no change to wound, no drainage or pain gen- alert, awake,appears stated age, pleasant cv- rrr, no le edema lungs-normal resp effort on room air skin- finger incision dressing clean dry and intact neuro- AAOx3 R hand Osteomyelitis and septic joint s/p partial finger amputation -ID following, cont IV Vanc + rocephin for 6 weeks total -no further temp elevation -fu with Dr Roman and ID as scheduled -awaiting snf placement Mood disorder- cont home geodon, remeron and celexa Hep C- will refer to GI outpt upon dc for follow up and treatment options further diagnoses and plan as noted by resident remains medically stable for dc to snf <Karan Green - Last Filed: 02/28/19 09:32> (2) Depression Qualifiers: Depression Type: major depressive disorder Major depression recurrence: unspecified whether recurrent Active/Remission status: remission status unspecified Qualified Code(s): F32.9 - Major depressive disorder, single episode, unspecified <Elenita Boss - Last Filed: 02/28/19 09:48> (1) Depression Qualifiers: Depression Type: major depressive disorder Major depression recurrence: unsp ecified whether recurrent Active/Remission status: remission status unspecified Qualified Code(s): F32.9 - Major depressive disorder, single episode, unspecified
[2019-02-28 12:05] VITALS: BP 134/80
[2019-02-28] MEDS ORDERED: Aminoglycoside Consult 1 EACH MC ONE (15:09)
== END 2019-02-28 15:10 | DRG 316 ==
LOC: EMEROOARM 16:42 → 3NENU 16:42 → SUATTDRO 19:52 → 3NENU 22:05 → SUATTDRO 02-17 11:11 → 3BNU 02-17 16:36
PROVIDERS: ADMIT Pediatrics; ATTEND Internal Medicine